=== PATIENT | male | born 1955 | race African-American/Black ===

== ENCOUNTER 2017-02-23 18:53 | Inpatient (IN) | payer OTHER ==
--- NOTE | 2017-02-23 20:03 | HP ---
Admission ROS [facility] Allergies/Adverse Reactions: Allergies Allergy/AdvReac Type Severity Reaction Status Date / Time No Known Allergies Allergy Verified 02/23/17 19:43 - Ebola screening Have you traveled outside of the country in the last 21 days: No Have you had contact with anyone from an Ebola affected area: No Do you have a fever: No Patient History - Patient Medical History Hx Anemia: No Hx Asthma: No Hx Chronic Obstructive Pulmonary Disease (COPD): No Hx Cancer: No Hx Cardiac Disorders: No Hx Congestive Heart Failure: No Hx Hypertension: No Hx Hypercholesterolemia: Yes (BUT NOT CURRENTLY ON MEDS) Hx Pacemaker: No HX Cerebrovascular Accident: No Hx Seizures: No Hx Dementia: No Hx Diabetes: Yes Hx Gastrointestinal Disorders: No Hx Liver Disease: No Hx Genitourinary Disorders: No Hx Sexually Transmitted Disorders: No Hx Renal Disease (ESRD): No Hx Thyroid Disease: No Hx Human Immunodeficiency Virus (HIV): No (NEGATIVE) Hx Hepatitis C: No Hx Depression: No Hx Suicide Attempt: No Hx Bipolar Disorder: No Hx Schizophrenia: No - Patient Surgical History Past Surgical History: Yes Hx Neurologic Surgery: No Hx Cataract Extraction: No Hx Cardiac Surgery: No Hx Lung Surgery: No Hx Breast Surgery: No Hx Breast Biopsy: No Hx Abdominal Surgery: No Hx Appendectomy: No Hx Cholecystectomy: No Hx Genitourinary Surgery: No Hx Section: No Hx Orthopedic Surgery: No Other Surgical History: best salyx, left eye Anesthesia Reaction: No - Smoking Cessation Smoking history: Smoker current status UNK Have you smoked in the past 12 months: No Cigars Per Day: 0 Hx Chewing Tobacco Use: No Initiated information on smoking cessation: No Family Disease History - Family Disease History Family Disease History: Diabetes: Mother (), Heart Disease: Mother Screened but not Admitted - Documentation of Visit Screened but not Admitted: Yes Left Prior to Completion of Assessment: No Insurance Authorization Denied: No Patient Does Not Meet Criteria for Admission: No Level of Care Recommended at this Time: ER Evaluation/Care Alternative Treatment/Detention Info Provided: No Additional Information/Explanation: RESPONSE TO EMERGENCY CALL, OBSERVED PATIENT LYING ON FLOOR SUPINE, RESTLESSNESS, TALKING, ALBE TO FOLLOW DIRECTION ASSIST TO CHAIR, CONTINUE TALKING KICKING ARMS AND LEGS, S/O SEVERE HEARACHE, UNABLE TO SEE, BGM 556, HISTORY OF HYPERTENSION DIABETES II AND GLAUCOMA. RECEIVED SECURITY REPORTS THAT THE PATIENT ARRIVED AROUND 2 PM, SLEEPING ON CHAIR IN WAITING ROOM, UPON AWAKEN, WALKED TO SECURITY THEN COLLAPSED, AMBULANCE WAS CALLED, INFORMATION PROVIDED TO ER, MAY RETURN TO [facility] FOR DETOX/ REHAB WHEN MEDICALLY CLEAR [facility] Breath Alcohol Content Breath Alcohol Content: 0 Vital Signs - Vital Signs Vital Signs Refused: No Pulse Rate: 106 Blood Pressure: 223/106 BP Location: Left Arm Blood Pressure Position: Supine Urine Drug Screen - Control Is Test Valid: Yes - Results Drug Screen Negative: No Urine Drug Screen Results: PCP-Phencyclidine
--- NOTE | 2017-02-24 02:04 | HP ---
CIWA Score - CIWA Score Nausea/Vomitin-No Nausea/No Vomiting Muscle Tremors: 2 Anxiety: 4-Mod. Anxious/Guarded Agitation: 3 Paroxysmal Sweats: 1-Minimal Palms Moist Orientation: 0-Oriented Tacttile Disturbances: 2-Mild Itch/Numbness/Burn Auditory Disturbances: 0-None Visual Disturbances: 1-Very Mild Sensitivity Headache: 2-Mild CIWA-Ar Total Score: 15 Admission ROS S - HPI Chief Complaint: WITHDRAWAL SYMPTOMS Allergies/Adverse Reactions: Allergies Allergy/AdvReac Type Severity Reaction Status Date / Time No Known Allergies Allergy Verified 02/23/17 19:43 History of Present Illness: 61 y.o. with an extensive history of alcohol dependence is here for detox. He returns from [facility] after being treated for hyperglycemia and panic disorder. He was last here for detox in 06/2014 and rehab in 05/2015. Exam Limitations: No Limitations - Ebola screening Have you traveled outside of the country in the last 21 days: No Have you had contact with anyone from an Ebola affected area: No Do you have a fever: No - Review of Systems Constitutional: No Symptoms Reported EENT: reports: Blurred Vision, Tearing Respiratory: reports: Cough Cardiac: reports: No Symptoms Reported GI: reports: No Symptoms Reported : reports: No Symptoms Reported Musculoskeletal: reports: No Symptoms Reported Integumentary: reports: No Symptoms Reported Neuro: reports: Headache, Numbness, Tingling Endocrine: reports: Increased Thirst, Increased Urine Hematology: reports: No Symptoms Reported Psychiatric: reports: Mood/Affect Appropiate, Orientated x3 Other Systems: Reviewed and Negative Patient History - Patient Medical History Hx Anemia: No Hx Asthma: No Hx Chronic Obstructive Pulmonary Disease (COPD): No Hx Cancer: No Hx Cardiac Disorders: No Hx Congestive Heart Failure: No Hx Hypertension: Yes Hx Hypercholesterolemia: Yes (BUT NOT CURRENTLY ON MEDS) Hx Pacemaker: No HX Cerebrovascular Accident: No Hx Seizures: No Hx Dementia: No Hx Diabetes: Yes Hx Gastrointestinal Disorders: No Hx Liver Disease: No Hx Genitourinary Disorders: No Hx Sexually Transmitted Disorders: No Hx Renal Disease (ESRD): No Hx Thyroid Disease: No Hx Human Immunodeficiency Virus (HIV): No (NEGATIVE) Hx Hepatitis C: Yes (Treated ) Hx Depression: No Hx Suicide Attempt: No Hx Bipolar Disorder: No Hx Schizophrenia: No - Patient Surgical History Past Surgical History: Yes Hx Neurologic Surgery: No Hx Cataract Extraction: No Hx Cardiac Surgery: No Hx Lung Surgery: No Hx Breast Surgery: No Hx Breast Biopsy: No Hx Abdominal Surgery: No Hx Appendectomy: No Hx Cholecystectomy: No Hx Genitourinary Surgery: No Hx Section: No Hx Orthopedic Surgery: No Other Surgical History: lazer sx, left eye Anesthesia Reaction: No - PPD History Previous Implant?: No PPD to be Administered?: Yes - Reproductive History Patient is a Female of Child Bearing Age (11 -55 yrs old): No - Smoking Cessation Smoking history: Current some day smoker Have you smoked in the past 12 months: Yes Aproximately how many cigarettes per day: 1 Cigars Per Day: 0 Hx Chewing Tobacco Use: No Initiated information on smoking cessation: Yes 'Breaking Loose' booklet given: 02/24/17 - Substance & Tx. History Hx Alcohol Use: Yes Hx Substance Use: Yes Substance Use Type: Alcohol Hx Substance Use Treatment: Yes (Detox-2013, rehab-2014) - Substances Abused Alcohol Route: Oral Frequency: Daily Amount used: 6 pack of beer 16oz Age of first use: 18 Date of Last Use: 02/24/17 PCP Route: Smoking Frequency: 3-6 times per week Amount used: $20 Age of first use: 18 Date of Last Use: 02/22/17 Family Disease History - Family Disease History Family Disease History: Diabetes: Mother (), Heart Disease: Mother Admission Physical Exam S - Vital Signs Vital Signs: Vital Signs - 24 hr 02/23/17 20:03 Pulse Rate 106 H Blood Pressure 223/106 - Physical General Appearance: Yes: Anxious HEENTM: Yes: Other (LEFT EYE BLINDNESS) Respiratory: Yes: Normal Breath Sounds, No Respiratory Distress, No Accessory Muscle Use Neck: Yes: Trachea in good position Breast: Yes: Breast Exam Deferred Cardiology: Yes: Regular Rhythm, Regular Rate, Other (EKG PERFORMED AT [facility]) Abdominal: Yes: Flat, Soft Genitourinary: Yes: Other (NO COMPLAINTS REPORTED) Back: Yes: Normal Inspection Musculoskeletal: Yes: Gait Steady Extremities: Yes: Non-Tender Neurological: Yes: Fully Oriented, Alert, Normal Mood/Affect, Normal Response Integumentary: Yes: Normal Color, Dry, Warm Lymphatic: Yes: Within Normal Limits - Diagnostic (1) Blind left eye Current Visit: Yes Status: Chronic (2) DM Diabetes mellitus type 2 Current Visit: Yes Status: Chronic (3) Essential hypertension Current Visit: Yes Status: Chronic (4) Nicotine dependence Current Visit: Yes Status: Chronic (5) Alcohol dependence with uncomplicated withdrawal Current Visit: Yes Status: Chronic (6) PCP (phencyclidine) abuse Current Visit: Yes Status: Chronic Cleared for Admission S - Detox or Rehab [facility] Level of Care: Medically Managed Detox Regimen/Protocol: Librium S Breath Alcohol Content Breath Alcohol Content: 0 Urine Drug Screen - Test Device Lot Number: [id number] Expiration Date: 08/16/18 - Control Is Test Valid: Yes - Results Drug Screen Negative: No Urine Drug Screen Results: PCP-Phencyclidine
[2017-02-24] MEDS ORDERED: ACETAMINOPHEN 325 MG TABLET (FP) PO PRN (02:22)
[2017-02-24] MEDS ORDERED: MAG HYDROX/AL HYDROX/SIMETH 30 ML UNIT-DOSE CUP PO PRN (02:22)
[2017-02-24] MEDS ORDERED: chlordiazePOXIDE HCL 25 MG CAPSULE PO PRN (02:22)
[2017-02-24] MEDS ORDERED: P-EPHED 60MG/TRIPROLIDI 2.5MG TABLET PO PRN (02:22)
[2017-02-24] MEDS ORDERED: MAGNESIUM CITRATE 300 ML BOTTLE PO PRN (02:22)
[2017-02-24] MEDS ORDERED: MAGNESIUM HYDROX 2400MG/30ML ORAL SUSPENSION 30 ML CUP PO PRN (02:22)
[2017-02-24] MEDS ORDERED: chlordiazePOXIDE HCL 25 MG CAPSULE PO ONE (02:22)
[2017-02-24] MEDS ORDERED: hydrOXYzine PAMOATE 50 MG CAPSULE (FP) PO PRN (02:22)
[2017-02-24] MEDS ORDERED: MENTHOL/PHENOL 1 EACH UD MM PRN (02:22)
[2017-02-24] MEDS ORDERED: guaiFENesin/D-METHORPHAN HB 10 ML UNIT-DOSE CUPS PO PRN (02:22)
[2017-02-24] MEDS ORDERED: LOPERAMIDE HCL 2 MG CAPSULE PO PRN (02:22)
[2017-02-24] MEDS ORDERED: IBUPROFEN 400 MG TABLET (FP) PO PRN (02:22)
[2017-02-24] MEDS ORDERED: diphenhydrAMINE HCL 50 MG CAPSULE PO PRN (02:22)
[2017-02-24] MEDS ORDERED: cloNIDine HCL 0.1 MG TABLET PO PRN (02:29)
[2017-02-24] MEDS ORDERED: cloNIDine HCL 0.1 MG TABLET PO ONE (03:08)
[2017-02-24] MEDS ORDERED: metFORMIN HCL 500 MG TABLET (FP) PO SCH (07:00)
[2017-02-24] MEDS: chlordiazePOXIDE HCL 25 MG CAPSULE PO SCH ×4 (07:36→22:27)
[2017-02-24] MEDS: INSULIN SLIDING SCALE (NOVOLOG) 1 VIAL SQ SCH ×3 (07:38→17:20)
[2017-02-24] MEDS: glipiZIDE 10 MG TABLET (FP) PO SCH ×2 (08:08→18:21)
[2017-02-24] MEDS ORDERED: INSULIN (NOVOLOG) ASPART 100 UNITS/ML 10ML VIAL ONE ×3 (08:11→17:31)
[2017-02-24] MEDS: ASPIRIN COATED 81 MG TABLET.EC PO SCH (10:46)
[2017-02-24] MEDS: LISINOPRIL 10 MG TABLET (FP) PO SCH (10:46)
[2017-02-24] MEDS: PRENATAL VITAMINS W/ FOLIC ACID TABLET (FP) PO SCH (10:46)
[2017-02-24 14:14] LABS: HIV 1 & 2 AB NEGATIVE; HIV 1 AGp24 NEGATIVE
--- NOTE | 2017-02-24 16:22 | PN ---
[facility] CIWA - CIWA Score Nausea/Vomitin-Mild Nausea/No Vomiting Muscle Tremors: 3 Anxiety: 4-Mod. Anxious/Guarded Agitation: 0-Normal Activity Paroxysmal Sweats: 2 Orientation: 0-Oriented Tacttile Disturbances: 2-Mild Itch/Numbness/Burn Auditory Disturbances: 2-Mild Harshness/Frighten Visual Disturbances: 3-Moderate Sensitivity Headache: 0-None Present CIWA-Ar Total Score: 17 S Progress Note (SOAP) Subjective: Sweating, Tremors, Fatigue. Objective: PT. A & O X 3, OBSERVED AMBULATING ON UNIT. NO ACUTE DISTRESS. PT. DENIES CHEST PAIN. 02/24/17 16:17 Vital Signs Temperature 96.5 F L 02/24/17 13:15 Pulse Rate 70 02/24/17 13:15 Respiratory Rate 18 02/24/17 13:15 Blood Pressure 160/83 02/24/17 13:15 O2 Sat by Pulse Oximetry (%) Laboratory Tests 02/23/17 02/24/17 02/24/17 18:58 07:35 08:00 POC Glucometer 556 324 RPR Titer Nonreactive HIV 1&2 Antibody Screen HIV P24 Antigen 02/24/17 08:00 POC Glucometer RPR Titer HIV 1&2 Antibody Screen Negative HIV P24 Antigen Negative LABS NOTED. Assessment: 02/24/17 16:18 WITHDRAWAL SYMPTOMS. Plan: CONTINUE DETOX. D/C MAGNESIUM-CONTAINING MEDS. REPEAT CBC ON 02/26/2017 FOR ADMISSION CBC ABNORMAL LEVELS. ADVISED PATIENT TO FOLLOW-UP WITH PHYSICIAN ALLERGIST IMMUNOLOGIST AFTER DISCHARGE FROM DETOX FOR GENERAL MEDICAL ASSESSMENT AND FOR ABNORMAL ADMISSION RENAL LAB VALUES.
[2017-02-24] MEDS: THIAMINE HCL 100 MG TABLET (FP) PO SCH (22:24)
[2017-02-24] MEDS: LATANOPROST 0.005% OPHTH SOLN 2.5ML BOTTLE OU SCH (23:26)
[2017-02-25] MEDS: chlordiazePOXIDE HCL 25 MG CAPSULE PO SCH ×4 (06:04→22:39)
[2017-02-25] MEDS: glipiZIDE 10 MG TABLET (FP) PO SCH ×2 (06:19→18:55)
[2017-02-25] MEDS: INSULIN SLIDING SCALE (NOVOLOG) 1 VIAL SQ SCH ×3 (06:20→17:21)
[2017-02-25] MEDS: PRENATAL VITAMINS W/ FOLIC ACID TABLET (FP) PO SCH (09:52)
[2017-02-25] MEDS: LISINOPRIL 10 MG TABLET (FP) PO SCH (09:52)
[2017-02-25] MEDS: ASPIRIN COATED 81 MG TABLET.EC PO SCH (09:52)
[2017-02-25] MEDS ORDERED: INSULIN (NOVOLOG) ASPART 100 UNITS/ML 10ML VIAL ONE ×2 (11:54→16:35)
[2017-02-25] MEDS ORDERED: amLODIPine BESYLATE 10 MG TABLET (FP) PO ONE (14:36)
--- NOTE | 2017-02-25 14:37 | PN ---
[facility] CIWA - CIWA Score Nausea/Vomitin Muscle Tremors: 4-Moderate,w/Arms Extend Anxiety: 4-Mod. Anxious/Guarded Agitation: 4-Moderately Restless Paroxysmal Sweats: No Perspiration Orientation: 0-Oriented Tacttile Disturbances: 1-Very Mild Itch/Numbness Auditory Disturbances: 0-None Visual Disturbances: 0-None Headache: 0-None Present CIWA-Ar Total Score: 16 [facility] Progress Note (SOAP) Subjective: Nausea, sweating, tremor, chills, body aches Objective: 02/25/17 14:26 Last Vital Signs Temp Pulse Resp BP Pulse Ox 98.2 F 69 18 197/92 02/25/17 13:10 02/25/17 13:10 02/25/17 13:10 02/25/17 13:10 B/P: 197/92 Laboratory Tests 02/23/17 02/24/17 02/24/17 18:58 07:35 08:00 POC Glucometer 556 324 RPR Titer Nonreactive HIV 1&2 Antibody Screen HIV P24 Antigen 02/24/17 02/24/17 08:00 17:19 POC Glucometer 338 RPR Titer HIV 1&2 Antibody Screen Negative HIV P24 Antigen Negative Labs noted: FS 324 mg/dl; serum creatinine 2.4, BUN 22; UA: 2+ protein, 3+ glucose Assessment: 02/25/17 14:27 Withdrawal symptoms Noted with HTN, uncontrolled Noted with JOANNA, proteinuria and glycosuria secondary to uncontrolled DMT2 Plan: Continue detox, encouraged to drink lots of water Uncontrolled HTN: d/c lisinopril due to JOANNA, start norvasc 10mg PO daily (1st dose today), change clonidine from 0.2mg PO BID PRN to 0.1mg q8hr prn DMT2, uncontrolled: start levemir 10 units sq qhs, continue insulin lispro sliding scale with coverage, continue glipizide, send BMP in AM Proteinuria and glycosuria secondary to uncontrolled DMT2: encouraged to drink more water, water pitcher ordered, repeat UA JOANNA: d/c lisinopril, avoid nephrotoxic drugs, encouraged to drink lots of water , repeat BMP in AM
[2017-02-25] MEDS: THIAMINE HCL 100 MG TABLET (FP) PO SCH (22:37)
[2017-02-25] MEDS: LATANOPROST 0.005% OPHTH SOLN 2.5ML BOTTLE OU SCH (22:37)
[2017-02-25] MEDS: INSULIN DETEMIR 100 UNITS/ML MDV SQ SCH (23:00)
[2017-02-26] MEDS: chlordiazePOXIDE 5 MG CAPSULE PO SCH ×5 (05:38→22:52)
[2017-02-26] MEDS ORDERED: INSULIN (NOVOLOG) ASPART 100 UNITS/ML 10ML VIAL ONE ×2 (06:07→11:48)
[2017-02-26] MEDS: cloNIDine HCL 0.1 MG TABLET PO PRN ×2 (06:54→21:13)
[2017-02-26] MEDS: glipiZIDE 10 MG TABLET (FP) PO SCH ×2 (06:56→17:22)
[2017-02-26] MEDS: INSULIN SLIDING SCALE (NOVOLOG) 1 VIAL SQ SCH ×3 (06:56→16:43)
[2017-02-26] MEDS ORDERED: amLODIPine BESYLATE 10 MG TABLET (FP) PO SCH (10:00)
[2017-02-26 10:14] LABS: CALCIUM 8.9 mg/dL (8.5-10.1)
[2017-02-26 10:16] LABS: COCKROFT - GAULT 44.9
[2017-02-26] MEDS: ASPIRIN COATED 81 MG TABLET.EC PO SCH (10:36)
[2017-02-26] MEDS: PRENATAL VITAMINS W/ FOLIC ACID TABLET (FP) PO SCH (10:36)
--- NOTE | 2017-02-26 13:27 | PN ---
[facility] Progress Note (SOAP) Subjective: Sweating,interrupted sleep,restless Objective: 02/26/17 13:24 Vital Signs - 8 hr 02/26/17 02/26/17 06:17 09:25 Temperature 99.1 F 96.6 F L Pulse Rate 72 66 Respiratory 18 20 Rate Blood Pressure 181/99 176/93 Laboratory Results - last 24 hr 02/24/17 02/25/17 02/25/17 11:24 06:02 11:32 Sodium Potassium Chloride Carbon Dioxide Anion Gap BUN Creatinine POC Glucometer 406 411 303 Random Glucose Calcium Ammonia 02/25/17 02/25/17 02/26/17 16:22 22:54 05:37 Sodium Potassium Chloride Carbon Dioxide Anion Gap BUN Creatinine POC Glucometer 264 333 256 Random Glucose Calcium Ammonia 02/26/17 02/26/17 02/26/17 07:00 07:00 11:44 Sodium 139 Potassium 3.7 Chloride 103 Carbon Dioxide 29 Anion Gap 7 L BUN 24 H Creatinine 2.0 H POC Glucometer 541 Random Glucose 226 H D Calcium 8.9 Ammonia 40.46 H Laboratory Tests 02/23/17 02/24/17 02/24/17 18:58 07:35 08:00 Sodium Potassium Chloride Carbon Dioxide Anion Gap BUN Creatinine POC Glucometer 556 324 Random Glucose Calcium Ammonia RPR Titer Nonreactive HIV 1&2 Antibody Screen HIV P24 Antigen 02/24/17 02/24/17 02/24/17 08:00 11:24 17:19 Sodium Potassium Chloride Carbon Dioxide Anion Gap BUN Creatinine POC Glucometer 406 338 Random Glucose Calcium Ammonia RPR Titer HIV 1&2 Antibody Screen Negative HIV P24 Antigen Negative 02/25/17 02/25/17 02/25/17 06:02 11:32 16:22 Sodium Potassium Chloride Carbon Dioxide Anion Gap BUN Creatinine POC Glucometer 411 303 264 Random Glucose Calcium Ammonia RPR Titer HIV 1&2 Antibody Screen HIV P24 Antigen 02/25/17 02/26/17 02/26/17 22:54 05:37 07:00 Sodium 139 Potassium 3.7 Chloride 103 Carbon Dioxide 29 Anion Gap 7 L BUN 24 H Creatinine 2.0 H POC Glucometer 333 256 Random Glucose 226 H D Calcium 8.9 Ammonia RPR Titer HIV 1&2 Antibody Screen HIV P24 Antigen 02/26/17 02/26/17 07:00 11:44 Sodium Potassium Chloride Carbon Dioxide Anion Gap BUN Creatinine POC Glucometer 541 Random Glucose Calcium Ammonia 40.46 H RPR Titer HIV 1&2 Antibody Screen HIV P24 Antigen labs noted Assessment: 02/26/17 13:26 Withdrawal sx. Plan: Continue detox
[2017-02-26] MEDS: INSULIN DETEMIR 100 UNITS/ML MDV SQ SCH (21:05)
[2017-02-26] MEDS: THIAMINE HCL 100 MG TABLET (FP) PO SCH (21:06)
[2017-02-26] MEDS: LATANOPROST 0.005% OPHTH SOLN 2.5ML BOTTLE OU SCH (21:06)
[2017-02-27] MEDS ORDERED: chlordiazePOXIDE HCL 10 MG CAPSULE PO SCH (05:00)
[2017-02-27] MEDS ORDERED: INSULIN (NOVOLOG) ASPART 100 UNITS/ML 10ML VIAL ONE (06:13)
[2017-02-27] MEDS: cloNIDine HCL 0.1 MG TABLET PO PRN (06:14)
[2017-02-27] MEDS: glipiZIDE 10 MG TABLET (FP) PO SCH (06:39)
[2017-02-27] MEDS: INSULIN SLIDING SCALE (NOVOLOG) 1 VIAL SQ SCH (06:40)
[2017-02-27 09:24] VITALS: BP 160/87; PULSE 64; TEMP 96.5
[2017-02-27 09:56] LABS: URINE APPEARANCE CLEAR; URINE BILIRUBIN NEGATIVE (NEGATIVE); URINE BLOOD NEGATIVE (NEGATIVE); URINE COLOR STRAW; URINE GLUCOSE (UA) 3+ (NEGATIVE); URINE KETONE NEGATIVE (NEGATIVE); URINE LEUK ESTERASE NEGATIVE (NEGATIVE); URINE NITRITE NEGATIVE (NEGATIVE); URINE UROBILINOGEN NEGATIVE E.U./dl (0.2-1.0)
[2017-02-27 10:01] LABS: URINE PROTEIN 2+ (NEGATIVE)
[2017-02-27 10:16] LABS: URINE RBC 1 /hpf (0-3); URINE WBC <1 /hpf (3-5)
--- NOTE | 2017-02-27 10:35 | DS ---
[facility] Detox Discharge Summary Admission Date: 02/24/17 Discharge Date: 02/27/17 - History Present History: Alcohol Dependence, Cocaine Dependence Pertinent Past History: Type II DM HTN - Physical Exam Results Vital Signs: Vital Signs Temperature 96.5 F L 02/27/17 09:23 Pulse Rate 64 02/27/17 09:23 Respiratory Rate 18 02/27/17 09:23 Blood Pressure 160/87 02/27/17 09:23 O2 Sat by Pulse Oximetry (%) Pertinent Admission Physical Exam Findings: Withdrawal sx. Laboratory Last Values Sodium 139 mmol/L (136-145) 02/26/17 07:00 Potassium 3.7 mmol/L (3.5-5.1) 02/26/17 07:00 Chloride 103 mmol/L (98-107) 02/26/17 07:00 Carbon Dioxide 29 mmol/L (21-32) 02/26/17 07:00 Anion Gap 7 (8-16) L 02/26/17 07:00 BUN 24 mg/dL (7-18) H 02/26/17 07:00 Creatinine 2.0 mg/dL (0.7-1.3) H 02/26/17 07:00 POC Glucometer 311 UNITS (()) 02/27/17 06:10 Random Glucose 226 mg/dL (74-106) H D 02/26/17 07:00 Calcium 8.9 mg/dL (8.5-10.1) 02/26/17 07:00 Ammonia 40.46 umol/L (11-32) H 02/26/17 07:00 Urine Color Straw 02/27/17 08:00 Urine Appearance Clear 02/27/17 08:00 Urine pH 7.0 (5.0-8.0) 02/27/17 08:00 Urine Protein 2+ (NEGATIVE) H 02/27/17 08:00 Urine Glucose (UA) 3+ (NEGATIVE) H 02/27/17 08:00 Urine Ketones Negative (NEGATIVE) 02/27/17 08:00 Urine Blood Negative (NEGATIVE) 02/27/17 08:00 Urine Nitrite Negative (NEGATIVE) 02/27/17 08:00 Urine Bilirubin Negative (NEGATIVE) 02/27/17 08:00 Urine Urobilinogen Negative E.U./dl (0.2-1.0) 02/27/17 08:00 Ur Leukocyte Esterase Negative (NEGATIVE) 02/27/17 08:00 Urine RBC 1 /hpf (0-3) 02/27/17 08:00 Urine WBC <1 /hpf (3-5) 02/27/17 08:00 RPR Titer Nonreactive (NONREACTIVE) 02/24/17 08:00 HIV 1&2 Antibody Screen Negative 02/24/17 08:00 HIV P24 Antigen Negative 02/24/17 08:00 labs noted - Treatment Hospital Course: Detox Protocol Followed, Detoxed Safely, Responded well, Discharged Condition Good, Rehab Referral Accepted Patient has Accepted a Rehab Referral to: [facility] [place] - Medication Discharge Medications: Ambulatory Orders Enalapril Maleate [Vasotec -] 5 mg PO DAILY 07/10/12 Glipizide [Glucotrol] 10 mg PO BID 07/10/12 Metformin HCl [Glucophage] 1,000 mg PO BID 05/26/15 - Diagnosis (1) Alcohol dependence with uncomplicated withdrawal Current Visit: Yes Status: Chronic (2) DM Diabetes mellitus type 2 Current Visit: Yes Status: Chronic (3) Essential hypertension Current Visit: Yes Status: Chronic (4) Nicotine dependence Current Visit: Yes Status: Chronic (5) Cocaine dependence Current Visit: Yes Status: Chronic - AMA Did Patient Leave Against Medical Advice: No
== END 2017-02-27 10:54 | disposition home or self-care (01) | DRG 897 ==
LOC: YASAS 18:53 → Y3N 02-24 02:10
PROVIDERS: ADMIT Internal Medicine; ATTEND Internal Medicine
PROC: HZ2ZZZZ Detoxification Services for Substance Abuse Treatment (ICD-10-PCS; principal; 2017-02-24)
DX: F10.230 Alcohol dependence with withdrawal, uncomplicated (principal); F14.20 Cocaine dependence, uncomplicated; N17.9 Acute kidney failure, unspecified; F17.210 Nicotine dependence, cigarettes, uncomplicated; F16.10 Hallucinogen abuse, uncomplicated; E11.65 Type 2 diabetes mellitus with hyperglycemia; I10 Essential (primary) hypertension; R80.9 Proteinuria, unspecified; R81 Glycosuria; Z79.4 Long term (current) use of insulin; Z79.84 Long term (current) use of oral hypoglycemic drugs
CPT/HCPCS: 36415; 71020-TC; 80048; 80053; 81003; 81015; 82140; 85025; 86593; 87389; 93005; 93010; 99283-25

== ENCOUNTER 2017-02-23 19:28 | Emergency (ER) | payer OTHER ==
[2017-02-23 19:45] VITALS: TEMP 98.9; BMI 28.1
--- NOTE | 2017-02-23 20:03 | PDOC ---
History of Present Illness - General Chief Complaint: Blood Pressure Problem Stated Complaint: BLOOD SUGAR PROBLEM Time Seen by Provider: 02/23/17 19:43 History Source: Patient Exam Limitations: No Limitations - History of Present Illness Initial Comments: 02/23/17 20:03 PMD: Dr. 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 Patient states while at [facility] detox [facility](for pcp/"smoked" x1d ago), he was hyperventilating. He denies dizziness, lightheadedness, headache, visual disturbance to his right eye(pt is legally blind to the left eye), neck pains, back pains, chest pain, shortness of breath, abdominal pains, ext numbness or tingling sensation. Patient states he feels fine since arriving to the emergency department. Timing/Duration: 1/2 hour Associated Symptoms: reports: denies symptoms Past History - Past Medical History Allergies/Adverse Reactions: Allergies Allergy/AdvReac Type Severity Reaction Status Date / Time No Known Allergies Allergy Verified 02/23/17 19:43 Home Medications: Ambulatory Orders Enalapril Maleate [Vasotec -] 5 mg PO DAILY 07/10/12 Glipizide [Glucotrol] 10 mg PO BID 07/10/12 Metformin HCl [Glucophage] 1,000 mg PO BID 05/26/15 Anemia: No Asthma: No Cancer: No Cardiac Disorders: No CVA: No COPD: No CHF: No Dementia: No Diabetes: Yes GI Disorders: No Disorders: No HTN: No Hypercholesterolemia: Yes (BUT NOT CURRENTLY ON MEDS) Kidney Stones: No Liver Disease: No Suicide Attempt (Hx): No Seizures: No Thyroid Disease: No - Surgical History Abdominal Surgery: No Appendectomy: No Cardiac Surgery: No Cholecystectomy: No Lung Surgery: No Neurologic Surgery: No Orthopedic Surgery: No - Reproductive History Testicular Surgery: No - Psycho/Social/Smoking Cessation Hx Anxiety: No Suicidal Ideation: No Smoking History: Unknown if ever smoked Have you smoked in the past 12 months: No Number of Cigarettes Smoked Daily: 10 Cigars Per Day: 0 Information on smoking cessation initiated: No 'Breaking Loose' booklet given: 05/26/15 Hx Alcohol Use: No Drug/Substance Use Hx: No Substance Use Type: Alcohol, Cocaine Hx Substance Use Treatment: Yes Review of Systems - Review of Systems Able to Perform ROS?: Yes Comments:: 02/23/17 20:09 CONSTITUTIONAL: Absent: fever, chills, diaphoresis, generalized weakness, malaise, loss of appetite HEENT: Absent: rhinorrhea, nasal congestion, throat pain, throat swelling, difficulty swallowing, mouth swelling, ear pain, eye pain, visual Changes CARDIOVASCULAR: Absent: chest pain, loss of consciousness, palpitations, irregular heart rate, peripheral edema RESPIRATORY: Absent: cough, shortness of breath, dyspnea with exertion, orthopnea, wheezing, stridor, hemoptysis GASTROINTESTINAL: Absent: abdominal pain, abdominal distension, nausea, vomiting, diarrhea, constipation, melena, hematochezia GENITOURINARY: Absent: dysuria, frequency, urgency, hesitancy, hematuria, flank pain, genital pain MUSCULOSKELETAL: Absent: myalgia, arthralgia, joint swelling SKIN: Absent: rash, itching, pallor HEMATOLOGIC/IMMUNOLOGIC: Absent: easy bleeding, easy bruising, lymphadenopathy, frequent infections ENDOCRINE: Absent: unexplained weight gain, unexplained weight loss, heat intolerance, cold intolerance NEUROLOGIC: Absent: headache, focal weakness or paresthesias, dizziness, unsteady gait, seizure, mental status changes, bladder or bowel incontinence PSYCHIATRIC: Absent: anxiety, depression, suicidal or homicidal ideation, hallucinations. Is the patient limited Bolivian proficient: No *Physical Exam - Vital Signs Last Vital Signs Temp Pulse Resp BP Pulse Ox 98.9 F 88 18 194/91 100 02/23/17 19:44 02/23/17 19:44 02/23/17 19:44 02/23/17 19:44 02/23/17 19:44 - Physical Exam Comments: 02/23/17 20:09 GENERAL: Well developed, well nourished. Awake and alert. No acute distress. HEENT: Normocephalic, atraumatic. PERRLA, EOMI. No conjunctival pallor. Sclera are non- icteric. Moist mucous membranes. Oropharynx is clear. NECK: Supple. Full ROM. No JVD. Carotid pulses 2+ and symmetric, without bruits. No thyromegaly. No lymphadenopathy. CARDIOVASCULAR: Regular rate and rhythm. No murmurs, rubs, or gallops. Distal pulses are 2+ and symmetric. PULMONARY: No evidence of respiratory distress. Lungs clear to auscultation bilaterally. No wheezing, rales or rhonchi. ABDOMINAL: Soft. Non-tender. Non-distended. No rebound or guarding. No organomegaly. Normoactive bowel sounds. MUSCULOSKELETAL Normal range of motion at all joints. No bony deformities or tenderness. No CVA tenderness. EXTREMITIES: No cyanosis. No clubbing. No edema. No calf tenderness. SKIN: Warm and dry. Normal capillary refill. No rashes. No jaundice. NEUROLOGICAL: Alert, awake, appropriate. Cranial nerves 2-12 intact. No deficits to light touch and temperature in face, upper extremities and lower extremities. No motor deficits in the in face, upper extremities and lower extremities. Normoreflexic in the upper and lower extremities. Normal speech. Toes are down- going bilaterally. Gait is normal without ataxia. PSYCHIATRIC: Cooperative. Good eye contact. Appropriate mood and affect. ED Treatment Course - LABORATORY CBC & Chemistry Diagram: 02/23/17 20:24 02/23/17 20:24 *DC/Admit/Observation/Transfer Diagnosis at time of Disposition: Hyperglycemia, Panic anxiety syndrome - Discharge Dispostion Disposition: HOME Condition at time of disposition: Stable Admit: No - Referrals Referrals: Mary Beth Juarez [Staff Physician] - - Patient Instructions Printed Discharge Instructions: DI for Panic Disorder, DI for Hyperglycemia -- Adult Additional Instructions: Return to the ER for severe/persistent/worsening symptoms
[2017-02-23] MEDS ORDERED: SODIUM CHLORIDE 1,000 ML IV STA (20:14)
[2017-02-23 20:35] LABS: BASOPHIL 0.6 % (0-2.0); EOSINOPHIL 2.1 % (0-4.5); MCH 23.3 pg (25.7-33.7); MCHC 31.7 g/dl (32.0-35.9); MEAN CELL VOLUME 73.5 fl (80-96); MEAN PLT VOLUME 8.2 fl (7.5-11.1); NEUTROPHILS 51.6 % (42.8-82.8); PLATELET COUNT 197 K/MM3 (134-434); RDW 15.2 % (11.9-15.9)
[2017-02-23 20:47] LABS: URINE APPEARANCE CLEAR; URINE BILIRUBIN NEGATIVE (NEGATIVE); URINE COLOR COLORLESS; URINE GLUCOSE (UA) 3+ (NEGATIVE); URINE KETONE NEGATIVE (NEGATIVE); URINE LEUK ESTERASE NEGATIVE (NEGATIVE); URINE NITRITE NEGATIVE (NEGATIVE); URINE UROBILINOGEN NEGATIVE E.U./dl (0.2-1.0)
[2017-02-23 21:02] LABS: URINE BLOOD 1+ (NEGATIVE); URINE PROTEIN 2+ (NEGATIVE)
[2017-02-23 21:08] LABS: URINE RBC 3 /hpf (0-3); URINE WBC <1 /hpf (3-5)
[2017-02-23 21:18] LABS: ALBUMIN 2.4 g/dl (3.4-5.0); BILIRUBIN,TOTAL 0.2 mg/dL (0.2-1.0); CALCIUM 8.1 mg/dL (8.5-10.1); COCKROFT - GAULT 38.27; CREATININE 2.4 mg/dL (0.7-1.3); TOT PROT 5.7 g/dl (6.4-8.2)
[2017-02-23] MEDS ORDERED: INSULIN REGULAR HUMAN 100 UNITS/ML *VIAL IVPUSH ONE (21:20)
[2017-02-24 01:44] VITALS: BP 153/85; PULSE 72
--- NOTE | 2017-02-24 15:32 | EKG ---
Test Reason : Blood Pressure : / mmHG Vent. Rate : 082 BPM Atrial Rate : 082 BPM P-R Int : 168 ms QRS Dur : 106 ms QT Int : 414 ms P-R-T Axes : 053 -55 127 degrees QTc Int : 483 ms NORMAL SINUS RHYTHM POSSIBLE LEFT ATRIAL ENLARGEMENT LEFT AXIS DEVIATION INCOMPLETE RIGHT BUNDLE BRANCH BLOCK T WAVE ABNORMALITY, CONSIDER LATERAL ISCHEMIA PROLONGED QT ABNORMAL ECG NO PREVIOUS ECGS AVAILABLE CLINICAL CORRELATION IS RECOMMENDED Confirmed by ANAND MOORE, HANK ([id number]) on 02/24/2017 3:31:31 PM Referred By: Confirmed By:HANK MICHEL MD
== END 2017-02-24 01:43 | disposition home or self-care (01) ==
LOC: JER 19:28
PROC: 3E033VG Introduction of Insulin into Peripheral Vein, Percutaneous Approach (ICD-10-PCS; principal; 2017-02-23)
PROC: 3E0337Z Introduction of Electrolytic and Water Balance Substance into Peripheral Vein, Percutaneous Approach (ICD-10-PCS; 2017-02-23)
DX: E11.65 Type 2 diabetes mellitus with hyperglycemia (principal); F41.9 Anxiety disorder, unspecified; Z79.84 Long term (current) use of oral hypoglycemic drugs; I10 Essential (primary) hypertension; H54.42 Blindness, left eye, normal vision right eye; E78.00 Pure hypercholesterolemia, unspecified
CPT/HCPCS: 36415; 80053; 81003; 81015; 85025; 93005; 93010; 99283-25

== ENCOUNTER 2017-11-01 11:45 | Inpatient (IN) | payer OTHER ==
--- NOTE | 2017-11-01 12:35 | PDOC ---
History of Present Illness - General Chief Complaint: Blood Pressure Problem Stated Complaint: Blood Pressure Problem Time Seen by Provider: 11/01/17 12:09 History Source: Patient Exam Limitations: No Limitations - History of Present Illness Initial Comments: 11/01/17 13:10 The patient is a 62M with a PMH of DM and HTN who presents to the ER with complaints of high blood pressure. The patient states that he hasn't taken his BP medications in 2 weeks. He states he was going to rehab at [facility] for PCP and they recorded a high BP and sent him to the ER to get evaluated. He denies any symptoms. Past History - Past Medical History Allergies/Adverse Reactions: Allergies Allergy/AdvReac Type Severity Reaction Status Date / Time No Known Allergies Allergy Verified 11/01/17 12:03 Home Medications: Ambulatory Orders Atorvastatin Ca [Lipitor] 40 mg PO HS 11/01/17 Bimatoprost [Lumigan] 1 drop OD DAILY 11/01/17 Carvedilol [Coreg -] 25 mg PO BID 11/01/17 Clopidogrel Bisulfate [Plavix -] 75 mg PO HS 11/01/17 Cyclobenzaprine HCl [Flexeril -] 10 mg PO TID 11/01/17 Dorzolamide HCl/Timolol Maleat [Cosopt Eye Drops] 10 ml OD BID 11/01/17 Furosemide [Lasix -] 40 mg PO BID 11/01/17 Hydralazine HCl 50 mg PO TID 11/01/17 Insulin (Novolog) [Novolog Flexpen] 7 units SQ AC 11/01/17 Isosorbide Mononitrate [Imdur -] 30 mg PO DAILY 11/01/17 Latanoprost 0.005% Eye Drops [Xalatan 0.005% Eye Drops -] 1 drop OD HS 11/01/17 Lisinopril [Prinivil -] 40 mg PO DAILY 11/01/17 Anemia: No Asthma: No Cancer: No Cardiac Disorders: No CVA: No COPD: No CHF: No Dementia: No Diabetes: Yes GI Disorders: No Disorders: No HTN: Yes Hypercholesterolemia: Yes (BUT NOT CURRENTLY ON MEDS) Kidney Stones: No Liver Disease: No Seizures: No Thyroid Disease: No - Surgical History Abdominal Surgery: No Appendectomy: No Cardiac Surgery: No Cholecystectomy: No Lung Surgery: No Neurologic Surgery: No Orthopedic Surgery: No - Reproductive History Testicular Surgery: No - Suicide/Smoking/Psychosocial Hx Smoking History: Current some day smoker Have you smoked in the past 12 months: Yes Number of Cigarettes Smoked Daily: 5 Cigars Per Day: 0 Information on smoking cessation initiated: No 'Breaking Loose' booklet given: 02/24/17 Hx Alcohol Use: No Drug/Substance Use Hx: Yes (pcp,oxy) Substance Use Type: None Hx Substance Use Treatment: Yes (Detox-2013, rehab-2014) Review of Systems - Review of Systems Able to Perform ROS?: Yes Comments:: 11/01/17 14:49 GENERAL/CONSTITUTIONAL: No fever or chills. No weakness. HEAD, EYES, EARS, NOSE AND THROAT: No change in vision. No ear pain or discharge. No sore throat. CARDIOVASCULAR: Positive for elevated BP. No chest pain, palpitations, or lightheadedness. RESPIRATORY: No cough, wheezing, shortness of breath, or hemoptysis. GASTROINTESTINAL: No nausea, vomiting, diarrhea, constipation, or abdominal pain. GENITOURINARY: No dysuria, frequency, hematuria, or change in urination. MUSCULOSKELETAL: No joint or muscle swelling or pain. No neck or back pain. SKIN: No rash or lesions. NEUROLOGIC: No headache, numbness, tingling, weakness, loss of consciousness, or change in strength/sensation. ENDOCRINE: No increased thirst. No abnormal weight change. HEMATOLOGIC/LYMPHATIC: No anemia, easy bleeding, or history of blood clots. ALLERGIC/IMMUNOLOGIC: No hives or skin allergy. Is the patient limited Wallisian proficient: No *Physical Exam - Vital Signs Last Vital Signs Temp Pulse Resp BP Pulse Ox 97.9 F 80 12 196/96 100 11/01/17 11:54 11/01/17 11:54 11/01/17 11:54 11/01/17 11:54 11/01/17 11:54 - Physical Exam Comments: 11/01/17 14:49 GENERAL: Well developed, well nourished. Awake and alert. No acute distress. HEENT: Normocephalic, atraumatic. Hearing grossly normal. Moist mucous membranes. PERRLA, EOMI. No conjunctival pallor. Sclera are non-icteric. NECK: Supple. Full ROM. No JVD. CARDIOVASCULAR: Regular rate and rhythm. No murmurs, rubs, or gallops. PULMONARY: No evidence of respiratory distress. Lungs clear to auscultation bilaterally. No wheezing, rales or rhonchi. ABDOMINAL: Soft. Non-tender. Non-distended. No rebound or guarding. GENITOURINARY: No CVA tenderness bilaterally. MUSCULOSKELETAL: Normal range of motion at all joints. No bony deformities or tenderness. L arm in cast. EXTREMITIES: No cyanosis. No clubbing. No edema. No calf tenderness. SKIN: Warm and dry. Normal capillary refill. No rashes. No jaundice. NEUROLOGICAL: Alert, awake, appropriate. Cranial nerves 2-12 intact. Normal speech. Gait is normal without ataxia. PSYCHIATRIC: Cooperative. Good eye contact. Appropriate mood and affect. Heart Score/ECG Review #1 ECG reviewed & interpreted by me at: 13:50 General ECG Interpretation: Sinus Rhythm, Normal Rate, Normal Intervals, No acute ischemic changes 11/01/17 14:50 NSR Rate 69 MI 164 QRS 104 QTc 458 L anterior fascicular block noted ED Treatment Course - LABORATORY CBC & Chemistry Diagram: 11/01/17 13:20 11/01/17 13:20 Medical Decision Making - Medical Decision Making 11/01/17 12:29 The patient is a 62M with a PMH of DM and HTN who presents to the ER with elevated BP sent from his rehab facility (for PCP). I have spoken to the pharmacy and received this list of medications: - Novolog 7 units TID before meals - Hydralazine 50 mg TID - Lisinopril 40mg once/day - Plavix 75mg once/day - Lasix 40mg BID - Imdur 30mg once/day - Lipitor 40mg once/day - Coreg 25mg BID - Flexeril 5 mg TID - Xeletin eye drops one drop BID - Lumigan 0.01% - Cosopt 1 drop R eye BID Dr. Lola Nix at [facility] is the prescriber. Will give home BP meds and reevaluate. 11/01/17 14:51 Pt noted to have JOANNA with BUN 30 and Cr 3.0 up from 2.0 last February. Will admit for JOANNA possibly 2/2 to HTN and/or DM. 11/01/17 15:18 Attending endorsed pt to [facility] under Dr. Belcher. *DC/Admit/Observation/Transfer Diagnosis at time of Disposition: Essential hypertension - Discharge Dispostion Condition at time of disposition: Stable Admit: Yes - Referrals - Patient Instructions - Post Discharge Activity
[2017-11-01] MEDS ORDERED: hydrALAZINE HCL 50 MG TABLET (FP) PO ONE (12:54)
[2017-11-01] MEDS ORDERED: ISOSORBIDE MONONITRATE 30 MG TAB.SR.24H (FP) PO ONE (12:54)
[2017-11-01] MEDS ORDERED: CARVEDILOL 25 MG TABLET (FP) PO ONE (12:54)
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
[2017-11-01] MEDS ORDERED: CARVEDILOL 12.5 MG TABLET (FP) ONE (13:29)
[2017-11-01] MEDS ORDERED: hydrALAZINE HCL 25 MG TABLET (FP) ONE (13:29)
[2017-11-01] MEDS ORDERED: ISOSORBIDE MONONITRATE 60 MG TAB.SR.24H (FP) PO ONE (13:30)
[2017-11-01 13:48] LABS: BASO % 0.6 % (0-2.0); EOS % 1.7 % (0-4.5); HEMOGLOBIN 10.5 GM/dL (11.7-16.9); LYMPH % 30.9 % (8-40); MEAN CELL VOLUME 74.2 fl (80-96); MEAN PLT VOLUME 8.7 fl (7.5-11.1); MONO % 5.6 % (3.8-10.2); NEUT % 61.2 % (42.8-82.8); PLATELET COUNT 226 K/MM3 (134-434); RBC 4.58 M/mm3 (4.00-5.60); RDW 14.6 % (11.9-15.9)
[2017-11-01 14:13] LABS: ALBUMIN 2.8 g/dl (3.4-5.0); ANION GAP 10 (8-16); BILIRUBIN,TOTAL 0.5 mg/dL (0.2-1.0); BLOOD UREA NITROGEN 31 mg/dL (7-18); CALCIUM 8.6 mg/dL (8.5-10.1); CHLORIDE 98 mmol/L (98-107); CO2 27 mmol/L (21-32); MAGNESIUM 2.3 mg/dL (1.8-2.4); POTASSIUM 4.6 mmol/L (3.5-5.1); SGOT/AST 36 U/L (15-37); SGPT/ALT 33 U/L (12-78); SODIUM 135 mmol/L (136-145); TOT PROT 6.7 g/dl (6.4-8.2)
[2017-11-01 14:14] LABS: ALK PHOS 89 U/L (45-117)
[2017-11-01 14:15] LABS: GLUCOSE,RANDOM 485 mg/dL (74-106)
[2017-11-01] MEDS ORDERED: CYCLOBENZAPRINE HCL 10 MG TABLET (FP) PO PRN (15:26)
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
[2017-11-01] MEDS: INSULIN SLIDING SCALE (NOVOLOG) 1 VIAL SQ SCH ×2 (18:02→21:09)
[2017-11-01] MEDS ORDERED: INSULIN (NOVOLOG) ASPART 100 UNITS/ML 10ML VIAL ONE ×2 (18:05→20:14)
--- NOTE | 2017-11-01 18:30 | CON.CARD ---
Cardiology Consult (text) - Consultation Consultation Note: Current Medications Atorvastatin Calcium (Lipitor -) 40 mg PO HS [facility] Carvedilol (Coreg -) 25 mg PO BID [facility] Clopidogrel Bisulfate (Plavix -) 75 mg PO HS [facility] Cyclobenzaprine HCl (Flexeril -) 10 mg PO Q8H PRN PRN Reason: MUSCLE SPASMS Dorzolamide HCl (Trusopt 2%) 1 drop OD BID [facility] Heparin Sodium (Porcine) (Heparin -) 5,000 unit SQ TID [facility] Hydralazine HCl (Apresoline -) 50 mg PO TID [facility] Insulin Aspart (Novolog Vial Sliding Scale -) 1 vial SQ ACHS [facility] PRN Reason: Protocol Last Admin: 11/01/17 18:02 Dose: 10 unit Isosorbide Mononitrate (Imdur -) 30 mg PO DAILY [facility] Timolol Maleate (Timoptic 0.5%) 1 drop OD BID [facility] Vital Signs - 24 hr 11/01/17 11/01/17 11/01/17 11:54 15:32 18:21 Temperature 97.9 F 98.2 F Pulse Rate 80 Pulse Rate [ 65 66 Apical] Respiratory 12 16 16 Rate Blood Pressure 196/96 Blood Pressure 126/65 132/71 [Right] O2 Sat by Pulse 100 97 100 Oximetry (%) Intake & Output 10/30/17 10/31/17 11/01/17 11/02/17 07:59 07:59 07:59 07:59 Weight 174 lb CBC, BMP 11/01/17 13:20 11/01/17 13:20
[2017-11-01 19:57] LABS: ACETONE SERUM NEGATIVE (NEGATIVE)
[2017-11-01] MEDS: CLOPIDOGREL BISULFATE 75 MG TABLET (FP) PO SCH (21:09)
[2017-11-01] MEDS: CARVEDILOL 25 MG TABLET (FP) PO SCH (21:09)
[2017-11-01] MEDS: HEPARIN NA (PORCINE) 5,000 UNITS/ML 1ML VIAL SQ SCH (21:09)
[2017-11-01] MEDS: ATORVASTATIN CA 40 MG TABLET (FP) PO SCH (21:09)
[2017-11-01] MEDS: hydrALAZINE HCL 50 MG TABLET (FP) PO SCH (21:09)
[2017-11-01] MEDS ORDERED: PATIENT'S OWN MEDICATION (NON-FORMULARY) (Dorzolamide Hcl/Timolol Maleat [Cosopt Eye Drops OD SCH (22:00)
[2017-11-01] MEDS: TIMOLOL 0.5% OPHTHALMIC SOL 5 ML BOTTLE OD SCH (23:03)
[2017-11-01] MEDS: DORZOLAMIDE 2% HCL OPHTHALMIC SOLUTION 10 ML BOTTLE OD SCH (23:03)
[2017-11-01 23:24] VITALS: BMI 26.4
[2017-11-02] MEDS ORDERED: PT OWN MED DRAWER 7, Y5N ONE ×3 (06:08→20:42)
[2017-11-02] MEDS: hydrALAZINE HCL 50 MG TABLET (FP) PO SCH ×3 (06:54→21:07)
[2017-11-02] MEDS: INSULIN SLIDING SCALE (NOVOLOG) 1 VIAL SQ SCH ×4 (06:54→21:08)
[2017-11-02] MEDS: HEPARIN NA (PORCINE) 5,000 UNITS/ML 1ML VIAL SQ SCH ×3 (06:55→21:08)
[2017-11-02] MEDS ORDERED: INSULIN (NOVOLOG) ASPART 100 UNITS/ML 10ML VIAL ONE ×2 (07:09→11:42)
[2017-11-02 08:02] LABS: CHLORIDE 102 mmol/L (98-107); POTASSIUM 4.6 mmol/L (3.5-5.1); SODIUM 138 mmol/L (136-145)
[2017-11-02 08:15] LABS: ANION GAP 10 (8-16); BLOOD UREA NITROGEN 31 mg/dL (7-18); CALCIUM 8.1 mg/dL (8.5-10.1); CO2 26 mmol/L (21-32); CREATININE 3.1 mg/dL (0.7-1.3); GLUCOSE,RANDOM 288 mg/dL (74-106)
[2017-11-02] MEDS: CARVEDILOL 25 MG TABLET (FP) PO SCH ×2 (09:10→21:07)
[2017-11-02] MEDS: ISOSORBIDE MONONITRATE 30 MG TAB.SR.24H (FP) PO SCH (09:10)
[2017-11-02] MEDS: DORZOLAMIDE 2% HCL OPHTHALMIC SOLUTION 10 ML BOTTLE OD SCH ×2 (09:10→21:07)
[2017-11-02] MEDS: TIMOLOL 0.5% OPHTHALMIC SOL 5 ML BOTTLE OD SCH ×2 (09:11→21:07)
--- NOTE | 2017-11-02 11:10 | PN ---
Progress Note (short form) - Note Progress Note: Subjective: The patient was seen and examined at the bedside, he has complaints of left arm pain with movement but states he does not want any pain medication. Started on Librium detox per Dr. Sawant today Cr remains elevated 3.1. F/u FeNa. Renal ultrasound noted. F/u nephrology consult Current Medications Generic Name Dose Route Start Last Admin Trade Name Freq PRN Reason Stop Dose Admin Atorvastatin Calcium 40 mg 11/01/17 22:00 11/01/17 21:09 Lipitor - PO 40 mg HS [facility] Administration Carvedilol 25 mg 11/01/17 22:00 11/02/17 09:10 Coreg - PO 25 mg BID [facility] Administration Chlordiazepoxide HCl 50 mg 11/02/17 17:00 Librium - PO 11/03/17 11:01 [id number] [facility] Chlordiazepoxide HCl 25 mg 11/03/17 17:00 Librium - PO 11/04/17 11:01 [id number] [facility] Chlordiazepoxide HCl 15 mg 11/04/17 17:00 Librium - PO 11/05/17 11:01 [id number] [facility] Chlordiazepoxide HCl 25 mg 11/02/17 14:07 Librium - PO 11/05/17 14:06 Q4H PRN WITHDRAWAL(CONT SUBST) Clopidogrel Bisulfate 75 mg 11/01/17 22:00 11/01/17 21:09 Plavix - PO 75 mg HS [facility] Administration Cyclobenzaprine HCl 10 mg 11/01/17 15:26 Flexeril - PO Q8H PRN MUSCLE SPASMS Dorzolamide HCl 1 drop 11/01/17 22:00 11/02/17 09:10 Trusopt 2% OD 1 drop BID [facility] Administration Heparin Sodium (Porcine) 5,000 unit 11/01/17 22:00 11/02/17 13:52 Heparin - SQ 5,000 unit TID [facility] Administration Hydralazine HCl 50 mg 11/01/17 22:00 11/02/17 13:52 Apresoline - PO 50 mg TID [facility] Administration Insulin Aspart 1 vial 11/01/17 16:30 11/02/17 12:06 Novolog Vial Sliding Scale - SQ 6 unit ACHS [facility] Administration Protocol Isosorbide Mononitrate 30 mg 11/02/17 10:00 11/02/17 09:10 Imdur - PO 30 mg DAILY [facility] Administration Multivit/Folic Acid/Iron 1 tab 11/03/17 10:00 Vitamins (Sjr) - PO DAILY [facility] Thiamine HCl 100 mg 11/02/17 22:00 Vitamin B1 - PO HS [facility] Timolol Maleate 1 drop 11/01/17 22:00 11/02/17 09:11 Timoptic 0.5% OD 1 drop BID [facility] Administration Objective: Vital Signs Period Temp Pulse Resp BP Sys/House Pulse Ox Last 24 Hr 97.9 F-98.2 F 61-67 16-20 118-154/60-79 97-100 Physical Exam: Patient refused, becoming increasingly more agitated when I told him he was not being discharged today CBCD WBC 6.0 K/mm3 (4.0-10.0) 11/01/17 13:20 RBC 4.58 M/mm3 (4.00-5.60) 11/01/17 13:20 Hgb 10.5 GM/dL (11.7-16.9) L 11/01/17 13:20 Hct 34.0 % (35.4-49) L 11/01/17 13:20 MCV 74.2 fl (80-96) L 11/01/17 13:20 MCHC 31.0 g/dl (32.0-35.9) L 11/01/17 13:20 RDW 14.6 % (11.9-15.9) 11/01/17 13:20 Plt Count 226 K/MM3 (134-434) 11/01/17 13:20 MPV 8.7 fl (7.5-11.1) 11/01/17 13:20 CMP Sodium 138 mmol/L (136-145) 11/02/17 06:12 Potassium 4.6 mmol/L (3.5-5.1) 11/02/17 06:12 Chloride 102 mmol/L (98-107) 11/02/17 06:12 Carbon Dioxide 26 mmol/L (21-32) 11/02/17 06:12 Anion Gap 10 (8-16) 11/02/17 06:12 BUN 31 mg/dL (7-18) H 11/02/17 06:12 Creatinine 3.1 mg/dL (0.7-1.3) H 11/02/17 06:12 Creat Clearance w eGFR 21.45 (>60) 11/01/17 13:20 Random Glucose 288 mg/dL (74-106) H D 11/02/17 06:12 Calcium 8.1 mg/dL (8.5-10.1) L 11/02/17 06:12 Total Bilirubin 0.5 mg/dL (0.2-1.0) D 11/01/17 13:20 AST 36 U/L (15-37) 11/01/17 13:20 ALT 33 U/L (12-78) 11/01/17 13:20 Alkaline Phosphatase 89 U/L (45-117) 11/01/17 13:20 Total Protein 6.7 g/dl (6.4-8.2) 11/01/17 13:20 Albumin 2.8 g/dl (3.4-5.0) L 11/01/17 13:20 Assessment: This is a 62 year old male with PMHx of DM, HTN, polysubstance abuse , CAD (s/p stenting?), hyperlipidemia, CKD, who presented to the ED from [facility] with high blood pressure and hyperglycemia. Plan: 1) Hypertensive emergency with JOANNA - Patient reports non-compliance with medications - Continue Imdur, Hydralazine, Coreg - Continue to monitor - Hold Lasix and Lisinopril 2/ JOANNA - F/u cardiology consult 2) JOANNA on CKD - Cr ~2.2 02/2017 - Patient reports CKD - May be worsening CKD vs. JOANNA on CKD - F/u urine studies - Kidney/bladder ultrasound: No hydronephrosis seen. The right kidney with no discrete abnormality. Evaluation of the left renal size is limited - F/u nephrology consult 3) Hyperglycemia - BGM ACHS - ISS ACHS - F/u endocrine consult 4) Polysubstance abuse - No evidence of acute alcohol withdrawal! - Patient reports pcp dependence - Patient was started on Librium detox per Dr. Sawant - F/u detox consult 5) F/E/N: - Sodium controlled/diabetic diet - Monitor electrolytes 6) Prophylaxis: - OOB ambulating - SCDs bilaterally - Heparin 5,000u sq tid 7) Dispo: - Requires continued inpatient care CODE STATUS: FULL CODE Visit type - Emergency Visit Emergency Visit: Yes ED Registration Date: 11/01/17 Care time: The patient presented to the Emergency Department on the above date and was hospitalized for further evaluation of their emergent condition. - New Patient This patient is new to me today: No - Critical Care Critical Care patient: No
--- NOTE | 2017-11-02 12:21 | CON.CARD ---
Cardiology Consult (text) - Consultation Consultation Note: cc: htn hpi: 62 m hx htn, hld, dm, here with htn. Was entering rehab for pcp abuse and bp high so sent to er. Pt has not taken his meds in 2weeks. No cp, sob, palps, dizzy, loc, pnd, orthopnea, le edema. No hx hrt dz. pmh: per hpi psh: nc social: no tob, +pcp fam: no premature cad, scd ros: per hpi; no nvd, banegas, vision changes, gib, hematuria, dysuria, muscle pain meds: Home Medications Medication Instructions Recorded Atorvastatin Ca [Lipitor] 40 mg PO HS 11/01/17 Bimatoprost [Lumigan] 1 drop OD DAILY 11/01/17 Carvedilol [Coreg -] 25 mg PO BID 11/01/17 Clopidogrel Bisulfate [Plavix -] 75 mg PO HS 11/01/17 Cyclobenzaprine HCl [Flexeril -] 10 mg PO TID 11/01/17 Dorzolamide HCl/Timolol Maleat 10 ml OD BID 11/01/17 [Cosopt Eye Drops] Furosemide [Lasix -] 40 mg PO BID 11/01/17 Hydralazine HCl 50 mg PO TID 11/01/17 Insulin (Novolog) [Novolog Flexpen] 7 units SQ AC 11/01/17 Isosorbide Mononitrate [Imdur -] 30 mg PO DAILY 11/01/17 Latanoprost 0.005% Eye Drops 1 drop OD HS 11/01/17 [Xalatan 0.005% Eye Drops -] Lisinopril [Prinivil -] 40 mg PO DAILY 11/01/17 pe: Vital Signs Period Temp Pulse Resp BP Sys/House Pulse Ox Last 24 Hr 97.9 F-98.2 F 63-67 16-20 126-154/65-79 97-100 nad no jvd rrr s1s2 no mrg cta bl nl eff aaox3 no le e/c/c abd nt nd pos bs no jaundice diaphoresis pos dp pt no carotid bruits Laboratory Last Values WBC 6.0 K/mm3 (4.0-10.0) 11/01/17 13:20 RBC 4.58 M/mm3 (4.00-5.60) 11/01/17 13:20 Hgb 10.5 GM/dL (11.7-16.9) L 11/01/17 13:20 Hct 34.0 % (35.4-49) L 11/01/17 13:20 MCV 74.2 fl (80-96) L 11/01/17 13:20 MCH 23.0 pg (25.7-33.7) L 11/01/17 13:20 MCHC 31.0 g/dl (32.0-35.9) L 11/01/17 13:20 RDW 14.6 % (11.9-15.9) 11/01/17 13:20 Plt Count 226 K/MM3 (134-434) 11/01/17 13:20 MPV 8.7 fl (7.5-11.1) 11/01/17 13:20 Neutrophils % 61.2 % (42.8-82.8) 11/01/17 13:20 Lymphocytes % 30.9 % (8-40) D 11/01/17 13:20 Monocytes % 5.6 % (3.8-10.2) 11/01/17 13:20 Eosinophils % 1.7 % (0-4.5) 11/01/17 13:20 Basophils % 0.6 % (0-2.0) 11/01/17 13:20 Sodium 138 mmol/L (136-145) 11/02/17 06:12 Potassium 4.6 mmol/L (3.5-5.1) 11/02/17 06:12 Chloride 102 mmol/L (98-107) 11/02/17 06:12 Carbon Dioxide 26 mmol/L (21-32) 11/02/17 06:12 Anion Gap 10 (8-16) 11/02/17 06:12 BUN 31 mg/dL (7-18) H 11/02/17 06:12 Creatinine 3.1 mg/dL (0.7-1.3) H 11/02/17 06:12 Creat Clearance w eGFR 21.45 (>60) 11/01/17 13:20 POC Glucometer 337 UNITS (80-120) 11/02/17 06:52 Random Glucose 288 mg/dL (74-106) H D 11/02/17 06:12 Calcium 8.1 mg/dL (8.5-10.1) L 11/02/17 06:12 Magnesium 2.3 mg/dL (1.8-2.4) 11/01/17 13:20 Total Bilirubin 0.5 mg/dL (0.2-1.0) D 11/01/17 13:20 AST 36 U/L (15-37) 11/01/17 13:20 ALT 33 U/L (12-78) 11/01/17 13:20 Alkaline Phosphatase 89 U/L (45-117) 11/01/17 13:20 Total Protein 6.7 g/dl (6.4-8.2) 11/01/17 13:20 Albumin 2.8 g/dl (3.4-5.0) L 11/01/17 13:20 Acetone, Qual Negative (NEGATIVE) 11/01/17 13:20 ecg: sr, nl intervals, lat twis, no st changes, no sig change from old ecg echo 10/2017: mod lvh, nl lvef, nl rv, mild mr, mild tr, nl rvsp a/p: 62 m hx htn, hld, dm, here with htn. htn: -initially elevated, likely due to noncompliance with meds -improved after giving home meds -increase hydralazine prn for better bp control -echo here shows mod lvh, likely from untreated htn hld: -cont statin dm: stable, per pmd cardiac moon stable for dc if bp remains controlled later today
[2017-11-02] MEDS ORDERED: chlordiazePOXIDE HCL 25 MG CAPSULE PO PRN (14:07)
[2017-11-02] MEDS ORDERED: chlordiazePOXIDE HCL 25 MG CAPSULE PO ONE (14:07)
--- NOTE | 2017-11-02 14:07 | CONSULT ---
Consult Detox [facility] Reason for Current Admission/Consult: PCP abuse Referred by:: Betsy Alatorre - History History of Present Illness: 62 yo m who came to [facility] for admission to rehab for PCP abuse was found to have elevted bp and trasnferred to [facility] for work up found to have JOANNA and awaiting nephrology consult and bp controlled PMHX oud , alcohoism now in remission relapsed to pcp use becaue of life situation adn was binging for 2-3 weeks prior to admission using 1 bag daily. does nto need detox from other drug so misuse at this time as per patient requesting rehab bed when medicallys table - History Source History Provided By: Patient, Medical Record, Caregiver Limitations to Obtaining History: No Limitations - Alcohol/Substance Use Hx Alcohol Use: No (in remission) Hx Substance Use: Yes (oud in remission, no w using PCP) Hx Substance Use Treatment: Yes ([facility] rehab in past) - Current Drug/Alcohol Use PCP Route: Smoking Frequency: Daily Amount used: 1 bag last 2-3 weeks Age of first use: 22 Date of Last Use: 11/02/17 - Significant Medical Findings: 62 yo m not with withdrawal admitted to [facility] fo control of bp, PMHx oud, alcoholism both in remission now actively using PCP does nto need detox, no withdrawal noted, denies nicotine use Assessment Plan - Diagnosis (1) Essential hypertension Status: Chronic (2) Substance induced mood disorder Status: Acute (3) Alcohol dependence Status: Chronic (4) Blind left eye Status: Chronic (5) Cocaine dependence Status: Chronic (6) DM Diabetes mellitus type 2 Status: Chronic (7) Nicotine dependence Status: Chronic (8) PCP (phencyclidine) abuse Status: Chronic (9) Anemia Status: Acute (10) JOANNA (acute kidney injury) Status: Acute - Plan Plan: chart imaging, last reviewed, discussed case with nurse, anders torres and adal paulson, requesting inpatient rehab [facility]. saran is not withdrawing from alcohol or opioids at this time, does not need detox,. Recommend: 1. fluids, mvi, thimine and folic acid as ordered. 2. anemia - work up as per primary team, taking mvi etc. 3. polysubstance use /PCP abuse when medically stable may transfer to [facility] rehab if bed available and insurance accepted. 5. JOANNA- awaiting nephrology consult 6. HTN - controlled as per primary team 8. DM - controlled as per primary team 9. substance induced mood disorder - can give ambien for sleep if indicate or requsted by pateint. Zana Sawant MD [phone] - Medication Detox Regimen/Protocol: Not Applicable
[2017-11-02] MEDS ORDERED: PATIENT'S OWN MEDICATION (NON-FORMULARY) (Bimatoprost [Lumigan] 1 DROP) OD SCH (14:15)
[2017-11-02] MEDS ORDERED: chlordiazePOXIDE HCL 25 MG CAPSULE PO SCH (17:00)
--- NOTE | 2017-11-02 17:48 | CONSULT ---
Consult Consult Specialty:: Nephrology Reason for Consultation:: CKD - History of Present Illness Chief Complaint: sent in for HTN History of Present Illness: Pt is a 62 year old male with pmhx of DM and HTN who was sent in from rehab for hypertension and hyperglycemia. He says he has lost standing DM and HTN. He is not always compliant with meds. He was found to have elevated creatinine. He denies history of CKD. He denies nsaid use. He denies dysuria or hematuria. He denies chest pain or palpitations. - History Source History Provided By: Patient, Medical Record - Past Medical History Cardio/Vascular: Yes: HTN Renal/: Yes: Renal Inusuff Endocrine: Yes: Diabetes Mellitus - Alcohol/Substance Use Hx Alcohol Use: No - Smoking History Smoking history: Current some day smoker Have you smoked in the past 12 months: Yes Aproximately how many cigarettes per day: 5 Home Medications - Allergies Allergies/Adverse Reactions: Allergies Allergy/AdvReac Type Severity Reaction Status Date / Time No Known Allergies Allergy Verified 11/01/17 12:03 - Home Medications Home Medications: Ambulatory Orders Atorvastatin Ca [Lipitor] 40 mg PO HS 11/01/17 Bimatoprost [Lumigan] 1 drop OD DAILY 11/01/17 Carvedilol [Coreg -] 25 mg PO BID 11/01/17 Clopidogrel Bisulfate [Plavix -] 75 mg PO HS 11/01/17 Cyclobenzaprine HCl [Flexeril -] 10 mg PO TID 11/01/17 Dorzolamide HCl/Timolol Maleat [Cosopt Eye Drops] 10 ml OD BID 11/01/17 Furosemide [Lasix -] 40 mg PO BID 11/01/17 Hydralazine HCl 50 mg PO TID 11/01/17 Insulin (Novolog) [Novolog Flexpen] 7 units SQ AC 11/01/17 Isosorbide Mononitrate [Imdur -] 30 mg PO DAILY 11/01/17 Latanoprost 0.005% Eye Drops [Xalatan 0.005% Eye Drops -] 1 drop OD HS 11/01/17 Lisinopril [Prinivil -] 40 mg PO DAILY 11/01/17 Family Disease History - Family Disease History Family Disease History: Diabetes: Mother (), Heart Disease: Mother Review of Systems - Review of Systems Constitutional: reports: No Symptoms Eyes: reports: No Symptoms HENT: reports: No Symptoms Neck: reports: No Symptoms Cardiovascular: reports: No Symptoms Respiratory: reports: No Symptoms Gastrointestinal: reports: No Symptoms Genitourinary: reports: No Symptoms Musculoskeletal: reports: Other (left arm in sling) Neurological: reports: No Symptoms Physical Exam Vital Signs: Vital Signs Temperature 98 F 11/02/17 14:35 Pulse Rate 61 11/02/17 14:35 Respiratory Rate 20 11/02/17 14:35 Blood Pressure 118/60 11/02/17 14:35 O2 Sat by Pulse Oximetry (%) 98 11/02/17 09:00 Constitutional: Yes: Calm Eyes: Yes: Conjunctiva Clear HENT: Yes: Atraumatic Cardiovascular: Yes: S1, S2 Respiratory: Yes: CTA Bilaterally Gastrointestinal: Yes: Soft Renal/: Yes: WNL Breast(s): Yes: WNL Musculoskeletal: Yes: WNL Edema: No Neurological: Yes: Oriented Psychiatric: Yes: Oriented Labs: CBC, BMP 11/01/17 13:20 11/02/17 06:12 Selected Entries 11/01/17 11/02/17 11/02/17 11:54 09:01 14:35 Blood Pressure 196/96 154/77 118/60 Laboratory Tests 02/23/17 02/26/17 11/01/17 20:24 07:00 13:20 WBC 6.0 Hgb 10.5 L Sodium Potassium BUN Creatinine 2.4 H D 2.0 H Random Glucose Ur Random Sodium Ur Random Potassium Ur Random Chloride Urine Creatinine Opiates Screen Methadone Screen Barbiturate Screen Phencyclidine Screen Ur Amphetamines Screen MDMA (Ecstasy) Screen Benzodiazepines Screen Cocaine Screen U Marijuana (THC) Screen Acetone, Qual 11/01/17 11/02/17 11/02/17 13:20 06:12 13:30 WBC Hgb Sodium 135 L 138 Potassium 4.6 BUN 31 H D 31 H Creatinine 3.0 H D 3.1 H Random Glucose 485 H* D 288 H D Ur Random Sodium Ur Random Potassium Ur Random Chloride Urine Creatinine Opiates Screen Pending Methadone Screen Pending Barbiturate Screen Pending Phencyclidine Screen Pending Ur Amphetamines Screen Pending MDMA (Ecstasy) Screen Pending Benzodiazepines Screen Pending Cocaine Screen Pending U Marijuana (THC) Screen Pending Acetone, Qual Negative 11/02/17 11/02/17 13:30 13:30 WBC Hgb Sodium Potassium BUN Creatinine Random Glucose Ur Random Sodium Pending Ur Random Potassium Pending Ur Random Chloride Pending Urine Creatinine Pending Opiates Screen Methadone Screen Barbiturate Screen Phencyclidine Screen Ur Amphetamines Screen MDMA (Ecstasy) Screen Benzodiazepines Screen Cocaine Screen U Marijuana (THC) Screen Acetone, Qual Imaging - Results Ultrasound: Report Reviewed Problem List - Problems (1) CKD (chronic kidney disease) Code(s): N18.9 - CHRONIC KIDNEY DISEASE, UNSPECIFIED (2) Anemia Code(s): D64.9 - ANEMIA, UNSPECIFIED (3) Essential hypertension Code(s): I10 - ESSENTIAL (PRIMARY) HYPERTENSION (4) Substance induced mood disorder Code(s): F19.94 - OTH PSYCHOACTIVE SUBSTANCE USE, UNSP W MOOD DISORDER (5) Alcohol dependence Code(s): F10.20 - ALCOHOL DEPENDENCE, UNCOMPLICATED Assessment/Plan Current Medications Generic Name Dose Route Start Last Admin Trade Name Freq PRN Reason Stop Dose Admin Atorvastatin Calcium 40 mg 11/01/17 22:00 11/01/17 21:09 Lipitor - PO 40 mg HS VALENTINA Administration Carvedilol 25 mg 11/01/17 22:00 11/02/17 09:10 Coreg - PO 25 mg BID VALENTINA Administration Clopidogrel Bisulfate 75 mg 11/01/17 22:00 11/01/17 21:09 Plavix - PO 75 mg HS VALENTINA Administration Cyclobenzaprine HCl 10 mg 11/01/17 15:26 Flexeril - PO Q8H PRN MUSCLE SPASMS Dorzolamide HCl 1 drop 11/01/17 22:00 11/02/17 09:10 Trusopt 2% OD 1 drop BID VALENTINA Administration Heparin Sodium (Porcine) 5,000 unit 11/01/17 22:00 11/02/17 13:52 Heparin - SQ 5,000 unit TID VALENTINA Administration Hydralazine HCl 50 mg 11/01/17 22:00 11/02/17 13:52 Apresoline - PO 50 mg TID VALENTINA Administration Insulin Aspart 1 vial 11/01/17 16:30 11/02/17 16:59 Novolog Vial Sliding Scale - SQ 4 unit ACHS VALENTINA Administration Protocol Isosorbide Mononitrate 30 mg 11/02/17 10:00 11/02/17 09:10 Imdur - PO 30 mg DAILY VALENTINA Administration Multivit/Folic Acid/Iron 1 tab 11/03/17 10:00 Vitamins (Sjr) - PO DAILY VALENTINA Thiamine HCl 100 mg 11/02/17 22:00 Vitamin B1 - PO HS VALENTINA Timolol Maleate 1 drop 11/01/17 22:00 11/02/17 09:11 Timoptic 0.5% OD 1 drop BID VALENTINA Administration Impression 1. CKD with worsening creatinine 2. HTN 3. DM 4. mood disorder 5. HLD Plan - check ua - cont bp meds - will need outpt renal workup for CKD - will comment more on CKD after reviewing UA - check prt to isolation washer ratio - pt has retinal involvement from DM - will follow Dr Eden
[2017-11-02 18:04] LABS: COCAINE, UR NEGATIVE ng/ml (CUTOFF=300); URINE AMPHETAMINES NEGATIVE ng/ml (CUTOFF=500); URINE BARBITURATES NEGATIVE ng/ml (CUTOFF=200); URINE BENZODIAZEPINES NEGATIVE ng/ml (CUTOFF=200)
[2017-11-02 18:05] LABS: METHADONE, UR NEGATIVE ng/ml (CUTOFF=300)
[2017-11-02 18:07] LABS: OPIATES, URI POSITIVE ng/ml (CUTOFF=300); PHENCYCLIDINE,URINE POSITIVE ng/ml (CUTOFF=25)
[2017-11-02] MEDS: CLOPIDOGREL BISULFATE 75 MG TABLET (FP) PO SCH (21:07)
[2017-11-02] MEDS: ATORVASTATIN CA 40 MG TABLET (FP) PO SCH (21:07)
[2017-11-02] MEDS ORDERED: LATANOPROST 0.005% OPHTH SOLN 2.5ML BOTTLE OD SCH (22:00)
[2017-11-02] MEDS: THIAMINE HCL 100 MG TABLET (FP) PO SCH (23:10)
[2017-11-03] MEDS: hydrALAZINE HCL 50 MG TABLET (FP) PO SCH ×3 (06:51→21:00)
[2017-11-03] MEDS: INSULIN SLIDING SCALE (NOVOLOG) 1 VIAL SQ SCH ×4 (06:51→21:01)
[2017-11-03] MEDS: HEPARIN NA (PORCINE) 5,000 UNITS/ML 1ML VIAL SQ SCH ×3 (06:51→21:00)
[2017-11-03 08:22] LABS: ALBUMIN 2.4 g/dl (3.4-5.0); ANION GAP 8 (8-16); BLOOD UREA NITROGEN 32 mg/dL (7-18); CALCIUM 8.4 mg/dL (8.5-10.1); CHLORIDE 103 mmol/L (98-107); CO2 26 mmol/L (21-32); GLUCOSE,RANDOM 221 mg/dL (74-106); POTASSIUM 4.5 mmol/L (3.5-5.1); SGOT/AST 18 U/L (15-37); SODIUM 137 mmol/L (136-145)
[2017-11-03 08:25] LABS: ALK PHOS 72 U/L (45-117); BILIRUBIN,TOTAL 0.6 mg/dL (0.2-1.0); SGPT/ALT 19 U/L (12-78); TOT PROT 5.8 g/dl (6.4-8.2)
[2017-11-03] MEDS ORDERED: PT OWN MED DRAWER 7, Y5N ONE ×2 (09:19→20:31)
[2017-11-03] MEDS: DORZOLAMIDE 2% HCL OPHTHALMIC SOLUTION 10 ML BOTTLE OD SCH ×2 (09:43→21:02)
[2017-11-03] MEDS: CARVEDILOL 25 MG TABLET (FP) PO SCH ×2 (09:43→21:00)
[2017-11-03] MEDS: PRENATAL VITAMINS W/ FOLIC ACID TABLET (FP) PO SCH (09:43)
[2017-11-03] MEDS: ISOSORBIDE MONONITRATE 30 MG TAB.SR.24H (FP) PO SCH (09:43)
[2017-11-03] MEDS: TIMOLOL 0.5% OPHTHALMIC SOL 5 ML BOTTLE OD SCH ×2 (09:44→21:02)
[2017-11-03 10:07] LABS: URINE APPEARANCE CLEAR; URINE BILIRUBIN NEGATIVE (NEGATIVE); URINE BLOOD NEGATIVE (NEGATIVE); URINE COLOR STRAW; URINE GLUCOSE (UA) 2+ (NEGATIVE); URINE KETONE NEGATIVE (NEGATIVE); URINE LEUK ESTERASE NEGATIVE (NEGATIVE); URINE NITRITE NEGATIVE (NEGATIVE); URINE UROBILINOGEN NEGATIVE mg/dL (0.2-1.0)
[2017-11-03 10:11] LABS: EPI CELLS RARE /HPF (FEW); URINE BACTERIA RARE /hpf (NONE SEEN); URINE PROTEIN 2+ (NEGATIVE)
--- NOTE | 2017-11-03 10:54 | PN ---
Progress Note (short form) - Note Progress Note: Subjective: The patient was seen and examined at the bedside, he has no complaints at this time. He reports feeling "blessed today" Current Medications Generic Name Dose Route Start Last Admin Trade Name Tarunq PRN Reason Stop Dose Admin Atorvastatin Calcium 40 mg 11/01/17 22:00 11/02/17 21:07 Lipitor - PO 40 mg HS VALENTINA Administration Carvedilol 25 mg 11/01/17 22:00 11/03/17 09:43 Coreg - PO 25 mg BID VALENTINA Administration Clopidogrel Bisulfate 75 mg 11/01/17 22:00 11/02/17 21:07 Plavix - PO 75 mg HS VALENTINA Administration Cyclobenzaprine HCl 10 mg 11/01/17 15:26 11/03/17 06:50 Flexeril - PO 10 mg Q8H PRN Administration MUSCLE SPASMS Dorzolamide HCl 1 drop 11/01/17 22:00 11/03/17 09:43 Trusopt 2% OD 1 drop BID VALENTINA Administration Heparin Sodium (Porcine) 5,000 unit 11/01/17 22:00 11/03/17 06:51 Heparin - SQ 5,000 unit TID VALENTINA Administration Hydralazine HCl 100 mg 11/03/17 09:25 Apresoline - PO TID VALENTINA Insulin Aspart 1 vial 11/01/17 16:30 11/03/17 06:51 Novolog Vial Sliding Scale - SQ 4 unit ACHS VALENTINA Administration Protocol Isosorbide Mononitrate 30 mg 11/02/17 10:00 11/03/17 09:43 Imdur - PO 30 mg DAILY VALENTINA Administration Multivit/Folic Acid/Iron 1 tab 11/03/17 10:00 11/03/17 09:43 Vitamins (Sjr) - PO 1 tab DAILY VALENTINA Administration Thiamine HCl 100 mg 11/02/17 22:00 11/02/17 23:10 Vitamin B1 - PO 100 mg HS VALENTINA Administration Timolol Maleate 1 drop 11/01/17 22:00 11/03/17 09:44 Timoptic 0.5% OD 1 drop BID VALENTINA Administration Objective: Vital Signs Period Temp Pulse Resp BP Sys/House Pulse Ox Last 24 Hr 98 F-98.7 F 58-101 18-22 118-180/60-87 97-99 Physical Exam: General: NAD, A&Ox3 Lungs: CTA bilaterally Heart: RRR, S1S2 Abd: Soft, non-tender, non-distended. Normoactive bowel sounds Ext: Left arm immobilizer with sling CBCD WBC 6.0 K/mm3 (4.0-10.0) 11/01/17 13:20 RBC 4.58 M/mm3 (4.00-5.60) 11/01/17 13:20 Hgb 10.5 GM/dL (11.7-16.9) L 11/01/17 13:20 Hct 34.0 % (35.4-49) L 11/01/17 13:20 MCV 74.2 fl (80-96) L 11/01/17 13:20 MCHC 31.0 g/dl (32.0-35.9) L 11/01/17 13:20 RDW 14.6 % (11.9-15.9) 11/01/17 13:20 Plt Count 226 K/MM3 (134-434) 11/01/17 13:20 MPV 8.7 fl (7.5-11.1) 11/01/17 13:20 CMP Sodium 137 mmol/L (136-145) 11/03/17 06:20 Potassium 4.5 mmol/L (3.5-5.1) 11/03/17 06:20 Chloride 103 mmol/L (98-107) 11/03/17 06:20 Carbon Dioxide 26 mmol/L (21-32) 11/03/17 06:20 Anion Gap 8 (8-16) 11/03/17 06:20 BUN 32 mg/dL (7-18) H 11/03/17 06:20 Creatinine 3.0 mg/dL (0.7-1.3) H 11/03/17 06:20 Creat Clearance w eGFR 21.45 (>60) 11/03/17 06:20 Random Glucose 221 mg/dL (74-106) H D 11/03/17 06:20 Calcium 8.4 mg/dL (8.5-10.1) L 11/03/17 06:20 Total Bilirubin 0.6 mg/dL (0.2-1.0) 11/03/17 06:20 AST 18 U/L (15-37) D 11/03/17 06:20 ALT 19 U/L (12-78) D 11/03/17 06:20 Alkaline Phosphatase 72 U/L (45-117) 11/03/17 06:20 Total Protein 5.8 g/dl (6.4-8.2) L 11/03/17 06:20 Albumin 2.4 g/dl (3.4-5.0) L 11/03/17 06:20 Assessment: This is a 62 year old male with PMHx of DM, HTN, polysubstance abuse , CAD (s/p stenting?), hyperlipidemia, CKD, who presented to the ED from [facility] with high blood pressure and hyperglycemia. Plan: 1) Hypertensive emergency with JOANNA - Patient reports non-compliance with medications - Continue Imdur 30mg daily - Increased Hydralazine to 100mg po tid - Continue Coreg 25mg po bid - Continue to monitor - Hold Lasix and Lisinopril 10/19 JOANNA - Appreciate cardiology consult 2) JOANNA on CKD - Cr ~2.2 02/2017 - Patient reports CKD - May be worsening CKD vs. JOANNA on CKD - FeUrea 34.4%, prerenal - UA with 2+ protein - Kidney/bladder ultrasound: No hydronephrosis seen. The right kidney with no discrete abnormality. Evaluation of the left renal size is limited - Appreciate nephrology consult 3) Hyperglycemia - BGM ACHS - ISS ACHS - Start Levemir 5u sq hs - F/u endocrine consult 4) Polysubstance abuse - No evidence of acute alcohol withdrawal - Patient reports pcp dependence - Appreciate detox consult 5) F/E/N: - Sodium controlled/diabetic diet - Monitor electrolytes 6) Prophylaxis: - OOB ambulating - SCDs bilaterally - Heparin 5,000u sq tid 7) Dispo: - Requires continued inpatient care CODE STATUS: FULL CODE Visit type - Emergency Visit Emergency Visit: Yes ED Registration Date: 11/01/17 Care time: The patient presented to the Emergency Department on the above date and was hospitalized for further evaluation of their emergent condition. - New Patient This patient is new to me today: No - Critical Care Critical Care patient: No
[2017-11-03] MEDS ORDERED: INSULIN DETEMIR 100 UNITS/ML MDV SQ ONE (11:36)
[2017-11-03] MEDS ORDERED: INSULIN (NOVOLOG) ASPART 100 UNITS/ML 10ML VIAL ONE ×2 (11:36→20:30)
--- NOTE | 2017-11-03 11:49 | PN ---
Progress Note (short form) - Note Progress Note: s: no cp sob palps dizzy o: Vital Signs Period Temp Pulse Resp BP Sys/House Pulse Ox Last 24 Hr 98 F-98.7 F 58-101 18-22 118-180/60-87 97-99 nad no jvd rrr s1s2 no mrg cta bl nl eff aaox3 no le e/c/c abd nt nd pos bs no jaundice diaphoresis Current Medications Generic Name Dose Route Start Last Admin Trade Name Freq PRN Reason Stop Dose Admin Atorvastatin Calcium 40 mg 11/01/17 22:00 11/02/17 21:07 Lipitor - PO 40 mg HS VALENTINA Administration Carvedilol 25 mg 11/01/17 22:00 11/03/17 09:43 Coreg - PO 25 mg BID VALENTINA Administration Clopidogrel Bisulfate 75 mg 11/01/17 22:00 11/02/17 21:07 Plavix - PO 75 mg HS VALENTINA Administration Cyclobenzaprine HCl 10 mg 11/01/17 15:26 11/03/17 06:50 Flexeril - PO 10 mg Q8H PRN Administration MUSCLE SPASMS Dorzolamide HCl 1 drop 11/01/17 22:00 11/03/17 09:43 Trusopt 2% OD 1 drop BID VALENTINA Administration Heparin Sodium (Porcine) 5,000 unit 11/01/17 22:00 11/03/17 06:51 Heparin - SQ 5,000 unit TID VALENTINA Administration Hydralazine HCl 100 mg 11/03/17 09:25 Apresoline - PO TID VALENTINA Insulin Aspart 1 vial 11/01/17 16:30 11/03/17 11:40 Novolog Vial Sliding Scale - SQ 8 unit ACHS VALENTINA Administration Protocol Insulin Detemir 5 units 11/03/17 22:00 Levemir Vial SQ HS VALENTINA Isosorbide Mononitrate 30 mg 11/02/17 10:00 11/03/17 09:43 Imdur - PO 30 mg DAILY VALENTINA Administration Multivit/Folic Acid/Iron 1 tab 11/03/17 10:00 11/03/17 09:43 Vitamins (Sjr) - PO 1 tab DAILY VALENTINA Administration Thiamine HCl 100 mg 11/02/17 22:00 11/02/17 23:10 Vitamin B1 - PO 100 mg HS VALENTINA Administration Timolol Maleate 1 drop 11/01/17 22:00 11/03/17 09:44 Timoptic 0.5% OD 1 drop BID VALENTINA Administration CBC, BMP 11/01/17 13:20 11/03/17 06:20 ecg: sr, nl intervals, lat twis, no st changes, no sig change from old ecg echo 10/2017: mod lvh, nl lvef, nl rv, mild mr, mild tr, nl rvsp a/p: 62 m hx htn, hld, dm, here with htn. htn: -elevated likely due to noncompliance with meds -improved after giving home meds but still high at times so will increase hydralazine to 100 tid -echo here shows mod lvh, likely from untreated htn hld: -cont statin dm: stable, per pmd
--- NOTE | 2017-11-03 12:17 | EKG ---
Test Reason : Blood Pressure : / mmHG Vent. Rate : 069 BPM Atrial Rate : 069 BPM P-R Int : 164 ms QRS Dur : 104 ms QT Int : 428 ms P-R-T Axes : 050 -53 143 degrees QTc Int : 458 ms NORMAL SINUS RHYTHM LEFT ANTERIOR FASCICULAR BLOCK T WAVE ABNORMALITY, CONSIDER LATERAL ISCHEMIA ABNORMAL ECG WHEN COMPARED WITH ECG OF 23-FEB-2017 20:08, NO SIGNIFICANT CHANGE WAS FOUND Confirmed by CONCEPCION MOORE, SUSY ([id number]) on 11/03/2017 12:17:36 PM Referred By: Confirmed By:SUSY JAVIER MD
[2017-11-03] MEDS ORDERED: chlordiazePOXIDE HCL 25 MG CAPSULE PO SCH (17:00)
--- NOTE | 2017-11-03 17:42 | PN ---
Progress Note, Physician History of Present Illness: Pt seen and examined at bedside. I again discussed his renal function with him. He says he saw a underground repairer years ago however has not followed up with him. He does not know the name of the underground repairer but says he was not in [place]. - Current Medication List Current Medications: Active Medications Atorvastatin Calcium (Lipitor -) 40 mg PO HS [facility] Last Admin: 11/02/17 21:07 Dose: 40 mg Carvedilol (Coreg -) 25 mg PO BID [facility] Last Admin: 11/03/17 09:43 Dose: 25 mg Clopidogrel Bisulfate (Plavix -) 75 mg PO HS [facility] Last Admin: 11/02/17 21:07 Dose: 75 mg Cyclobenzaprine HCl (Flexeril -) 10 mg PO Q8H PRN PRN Reason: MUSCLE SPASMS Last Admin: 11/03/17 06:50 Dose: 10 mg Dorzolamide HCl (Trusopt 2%) 1 drop OD BID [facility] Last Admin: 11/03/17 09:43 Dose: 1 drop Heparin Sodium (Porcine) (Heparin -) 5,000 unit SQ TID [facility] Last Admin: 11/03/17 13:07 Dose: 5,000 unit Hydralazine HCl (Apresoline -) 100 mg PO TID [facility] Last Admin: 11/03/17 13:07 Dose: 100 mg Insulin Aspart (Novolog Vial Sliding Scale -) 1 vial SQ ACHS [facility] PRN Reason: Protocol Insulin Detemir (Levemir Vial) 5 units SQ [facility] Isosorbide Mononitrate (Imdur -) 30 mg PO DAILY [facility] Last Admin: 11/03/17 09:43 Dose: 30 mg Multivit/Folic Acid/Iron ( Vitamins (Sjr) -) 1 tab PO DAILY [facility] Last Admin: 11/03/17 09:43 Dose: 1 tab Thiamine HCl (Vitamin B1 -) 100 mg PO [facility] Last Admin: 11/02/17 23:10 Dose: 100 mg Timolol Maleate (Timoptic 0.5%) 1 drop OD BID [facility] Last Admin: 11/03/17 09:44 Dose: 1 drop - Objective Vital Signs: Vital Signs Temperature 98.4 F 11/03/17 13:07 Pulse Rate 66 11/03/17 13:07 Respiratory Rate 18 02/17/18 13:07 Blood Pressure 148/76 02/17/18 13:07 O2 Sat by Pulse Oximetry (%) 97 11/03/17 09:00 Constitutional: Yes: Calm Eyes: Yes: Conjunctiva Clear HENT: Yes: Atraumatic Neck: Yes: Supple Cardiovascular: Yes: S1, S2 Respiratory: Yes: CTA Bilaterally Gastrointestinal: Yes: Normal Bowel Sounds, Soft Genitourinary: Yes: WNL Musculoskeletal: Yes: Other (arm in splint) Edema: No Neurological: Yes: Oriented Psychiatric: Yes: Oriented Labs: CBC, BMP 11/01/17 13:20 11/03/17 06:20 Problem List - Problems (1) CKD (chronic kidney disease) Code(s): N18.9 - CHRONIC KIDNEY DISEASE, UNSPECIFIED (2) Anemia Code(s): D64.9 - ANEMIA, UNSPECIFIED (3) Essential hypertension Code(s): I10 - ESSENTIAL (PRIMARY) HYPERTENSION (4) Substance induced mood disorder Code(s): F19.94 - OTH PSYCHOACTIVE SUBSTANCE USE, UNSP W MOOD DISORDER (5) Alcohol dependence Code(s): F10.20 - ALCOHOL DEPENDENCE, UNCOMPLICATED Assessment/Plan Current Medications Generic Name Dose Route Start Last Admin Trade Name Freq PRN Reason Stop Dose Admin Atorvastatin Calcium 40 mg 11/01/17 22:00 11/02/17 21:07 Lipitor - PO 40 mg HS [facility] Administration Carvedilol 25 mg 11/01/17 22:00 11/03/17 09:43 Coreg - PO 25 mg BID [facility] Administration Clopidogrel Bisulfate 75 mg 11/01/17 22:00 11/02/17 21:07 Plavix - PO 75 mg HS [facility] Administration Cyclobenzaprine HCl 10 mg 11/01/17 15:26 11/03/17 06:50 Flexeril - PO 10 mg Q8H PRN Administration MUSCLE SPASMS Dorzolamide HCl 1 drop 11/01/17 22:00 11/03/17 09:43 Trusopt 2% OD 1 drop BID [facility] Administration Heparin Sodium (Porcine) 5,000 unit 11/01/17 22:00 11/03/17 13:07 Heparin - SQ 5,000 unit TID [facility] Administration Hydralazine HCl 100 mg 11/03/17 09:25 11/03/17 13:07 Apresoline - PO 100 mg TID [facility] Administration Insulin Aspart 1 vial 11/03/17 17:29 Novolog Vial Sliding Scale - SQ ACHS [facility] Protocol Insulin Detemir 5 units 11/03/17 22:00 Levemir Vial SQ HS [facility] Isosorbide Mononitrate 30 mg 11/02/17 10:00 11/03/17 09:43 Imdur - PO 30 mg DAILY [facility] Administration Multivit/Folic Acid/Iron 1 tab 11/03/17 10:00 11/03/17 09:43 Vitamins (Sjr) - PO 1 tab DAILY [facility] Administration Thiamine HCl 100 mg 11/02/17 22:00 11/02/17 23:10 Vitamin B1 - PO 100 mg HS [facility] Administration Timolol Maleate 1 drop 11/01/17 22:00 11/03/17 09:44 Timoptic 0.5% OD 1 drop BID [facility] Administration Laboratory Tests 11/03/17 09:35 Urine Protein 2+ H Impression 1. CKD with worsening creatinine 2. HTN 3. DM 4. mood disorder 5. HLD Plan - pt will need renal workup for proteinuria - pt has history of non compliance with meds, encouraged compliance - likely has ckd secondary to uncontrolled dm and htn - check prt to director group sales ratio - will follow Dr Eden
[2017-11-03] MEDS: THIAMINE HCL 100 MG TABLET (FP) PO SCH (21:00)
[2017-11-03] MEDS: ATORVASTATIN CA 40 MG TABLET (FP) PO SCH (21:00)
[2017-11-03] MEDS: CLOPIDOGREL BISULFATE 75 MG TABLET (FP) PO SCH (21:00)
[2017-11-03] MEDS: INSULIN DETEMIR 100 UNITS/ML MDV SQ SCH (21:01)
[2017-11-04] MEDS: INSULIN SLIDING SCALE (NOVOLOG) 1 VIAL SQ SCH ×4 (06:30→23:13)
[2017-11-04] MEDS: HEPARIN NA (PORCINE) 5,000 UNITS/ML 1ML VIAL SQ SCH ×3 (06:30→23:12)
[2017-11-04] MEDS: hydrALAZINE HCL 50 MG TABLET (FP) PO SCH ×3 (06:30→23:11)
[2017-11-04 08:02] LABS: HEMATOCRIT 30.5 % (35.4-49); HEMOGLOBIN 9.9 GM/dL (11.7-16.9); MCH 23.6 pg (25.7-33.7); MCHC 32.6 g/dl (32.0-35.9); MEAN CELL VOLUME 72.5 fl (80-96); MEAN PLT VOLUME 8.1 fl (7.5-11.1); PLATELET COUNT 225 K/MM3 (134-434); RDW 14.3 % (11.9-15.9); WHITE BLOOD COUNT 4.7 K/mm3 (4.0-10.0)
[2017-11-04 08:08] LABS: ALBUMIN 2.4 g/dl (3.4-5.0)
[2017-11-04 08:10] LABS: ALK PHOS 68 U/L (45-117); BILIRUBIN,TOTAL 0.5 mg/dL (0.2-1.0); SGOT/AST 11 U/L (15-37); SGPT/ALT 15 U/L (12-78); TOT PROT 5.5 g/dl (6.4-8.2)
[2017-11-04] MEDS: ISOSORBIDE MONONITRATE 30 MG TAB.SR.24H (FP) PO SCH (09:09)
[2017-11-04] MEDS: CARVEDILOL 25 MG TABLET (FP) PO SCH ×2 (09:09→23:12)
[2017-11-04] MEDS: PRENATAL VITAMINS W/ FOLIC ACID TABLET (FP) PO SCH (09:09)
[2017-11-04] MEDS: DORZOLAMIDE 2% HCL OPHTHALMIC SOLUTION 10 ML BOTTLE OD SCH ×2 (09:09→23:12)
[2017-11-04] MEDS: TIMOLOL 0.5% OPHTHALMIC SOL 5 ML BOTTLE OD SCH ×2 (09:09→23:12)
--- NOTE | 2017-11-04 10:55 | PN ---
Progress Note (short form) - Note Progress Note: s: no cp sob palps dizzy o: Vital Signs Period Temp Pulse Resp BP Sys/House Pulse Ox Last 24 Hr 98.1 F-98.9 F 60-68 18-20 146-188/76-95 97-97 nad no jvd rrr s1s2 no mrg cta bl nl eff aaox3 no le e/c/c abd nt nd pos bs no jaundice diaphoresis Current Medications Generic Name Dose Route Start Last Admin Trade Name Freq PRN Reason Stop Dose Admin Atorvastatin Calcium 40 mg 11/01/17 22:00 11/03/17 21:00 Lipitor - PO 40 mg HS [facility] Administration Carvedilol 25 mg 11/01/17 22:00 11/04/17 09:09 Coreg - PO 25 mg BID [facility] Administration Clopidogrel Bisulfate 75 mg 11/01/17 22:00 11/03/17 21:00 Plavix - PO 75 mg HS [facility] Administration Cyclobenzaprine HCl 10 mg 11/01/17 15:26 11/03/17 06:50 Flexeril - PO 10 mg Q8H PRN Administration MUSCLE SPASMS Dorzolamide HCl 1 drop 11/01/17 22:00 11/04/17 09:09 Trusopt 2% OD 1 drop BID [facility] Administration Heparin Sodium (Porcine) 5,000 unit 11/01/17 22:00 11/04/17 06:30 Heparin - SQ 5,000 unit TID [facility] Administration Hydralazine HCl 100 mg 11/03/17 09:25 11/04/17 06:30 Apresoline - PO 100 mg TID [facility] Administration Insulin Aspart 1 vial 11/03/17 17:29 11/04/17 06:30 Novolog Vial Sliding Scale - SQ 2 unit ACHS [facility] Administration Protocol Insulin Detemir 5 units 11/03/17 22:00 11/03/17 21:01 Levemir Vial SQ 5 unit HS [facility] Administration Isosorbide Mononitrate 30 mg 11/02/17 10:00 11/04/17 09:09 Imdur - PO 30 mg DAILY [facility] Administration Multivit/Folic Acid/Iron 1 tab 11/03/17 10:00 11/04/17 09:09 Vitamins (Sjr) - PO 1 tab DAILY [facility] Administration Thiamine HCl 100 mg 11/02/17 22:00 11/03/17 21:00 Vitamin B1 - PO 100 mg HS [facility] Administration Timolol Maleate 1 drop 11/01/17 22:00 11/04/17 09:09 Timoptic 0.5% OD 1 drop BID [facility] Administration CBC, BMP 11/04/17 06:25 ecg: sr, nl intervals, lat twis, no st changes, no sig change from old ecg echo 10/2017: mod lvh, nl lvef, nl rv, mild mr, mild tr, nl rvsp a/p: 62 m hx htn, hld, dm, here with htn. htn: -cont current meds, bp improved -would add norvasc next if bp elevated again -echo here shows mod lvh, likely from untreated htn hld: -cont statin dm: stable, per pmd
[2017-11-04 11:39] LABS: BLOOD UREA NITROGEN 30 mg/dl (7-18); GLUCOSE,RANDOM 140 mg/dl (74-106); SODIUM 139 mmol/L (136-145)
[2017-11-04 11:40] LABS: ANION GAP 9 (8-16); CALCIUM 8.1 mg/dl (8.4-10.2); CHLORIDE 106 mmol/L (98-107); CO2 24 mmol/L (22-28); POTASSIUM 4.3 mmol/L (3.5-5.1)
--- NOTE | 2017-11-04 14:30 | PN ---
Progress Note (short form) - Note Progress Note: Subjective: The patient was seen and examined at the bedside, he has no complaints at this time. He reports feeling "blessed today" Current Medications Generic Name Dose Route Start Last Admin Trade Name Freq PRN Reason Stop Dose Admin Atorvastatin Calcium 40 mg 11/01/17 22:00 11/03/17 21:00 Lipitor - PO 40 mg HS [facility] Administration Carvedilol 25 mg 11/01/17 22:00 11/04/17 09:09 Coreg - PO 25 mg BID [facility] Administration Clopidogrel Bisulfate 75 mg 11/01/17 22:00 11/03/17 21:00 Plavix - PO 75 mg HS [facility] Administration Cyclobenzaprine HCl 10 mg 11/01/17 15:26 11/03/17 06:50 Flexeril - PO 10 mg Q8H PRN Administration MUSCLE SPASMS Dorzolamide HCl 1 drop 11/01/17 22:00 11/04/17 09:09 Trusopt 2% OD 1 drop BID [facility] Administration Heparin Sodium (Porcine) 5,000 unit 11/01/17 22:00 11/04/17 13:42 Heparin - SQ 5,000 unit TID [facility] Administration Hydralazine HCl 100 mg 11/03/17 09:25 11/04/17 13:42 Apresoline - PO 100 mg TID [facility] Administration Insulin Aspart 1 vial 11/03/17 17:29 11/04/17 11:42 Novolog Vial Sliding Scale - SQ 6 unit ACHS [facility] Administration Protocol Insulin Detemir 5 units 11/03/17 22:00 11/03/17 21:01 Levemir Vial SQ 5 unit HS [facility] Administration Isosorbide Mononitrate 30 mg 11/02/17 10:00 11/04/17 09:09 Imdur - PO 30 mg DAILY [facility] Administration Multivit/Folic Acid/Iron 1 tab 11/03/17 10:00 11/04/17 09:09 Vitamins (Sjr) - PO 1 tab DAILY [facility] Administration Thiamine HCl 100 mg 11/02/17 22:00 11/03/17 21:00 Vitamin B1 - PO 100 mg HS [facility] Administration Timolol Maleate 1 drop 11/01/17 22:00 11/04/17 09:09 Timoptic 0.5% OD 1 drop BID [facility] Administration Objective: Vital Signs Period Temp Pulse Resp BP Sys/House Pulse Ox Last 24 Hr 98.1 F-98.9 F 60-68 20-20 146-188/81-95 97-97 Physical Exam: General: NAD, A&Ox3 Lungs: CTA bilaterally Heart: RRR, S1S2 Abd: Soft, non-tender, non-distended. Normoactive bowel sounds Ext: Left arm immobilizer with sling MSK: Left anterior ribs with tenderness CBCD WBC 4.7 K/mm3 (4.0-10.0) 11/04/17 06:25 RBC 4.20 M/mm3 (4.00-5.60) 11/04/17 06:25 Hgb 9.9 GM/dL (11.7-16.9) L 11/04/17 06:25 Hct 30.5 % (35.4-49) L 11/04/17 06:25 MCV 72.5 fl (80-96) L 11/04/17 06:25 MCHC 32.6 g/dl (32.0-35.9) 11/04/17 06:25 RDW 14.3 % (11.9-15.9) 11/04/17 06:25 Plt Count 225 K/MM3 (134-434) 11/04/17 06:25 MPV 8.1 fl (7.5-11.1) 11/04/17 06:25 CMP Sodium 139 mmol/L (136-145) 11/04/17 06:25 Potassium 4.3 mmol/L (3.5-5.1) 11/04/17 06:25 Chloride 106 mmol/L (98-107) 11/04/17 06:25 Carbon Dioxide 24 mmol/L (22-28) 11/04/17 06:25 Anion Gap 9 (8-16) 11/04/17 06:25 BUN 30 mg/dl (7-18) H 11/04/17 06:25 Creatinine 3.0 mg/dl (0.6-1.3) H 11/04/17 06:25 Creat Clearance w eGFR 21.45 (>60) 11/04/17 06:25 Random Glucose 140 mg/dl (74-106) H 11/04/17 06:25 Calcium 8.1 mg/dl (8.4-10.2) L 11/04/17 06:25 Total Bilirubin 0.5 mg/dL (0.2-1.0) 11/04/17 06:25 AST 11 U/L (15-37) L D 11/04/17 06:25 ALT 15 U/L (12-78) D 11/04/17 06:25 Alkaline Phosphatase 68 U/L (45-117) 11/04/17 06:25 Total Protein 5.5 g/dl (6.4-8.2) L 11/04/17 06:25 Albumin 2.4 g/dl (3.4-5.0) L 11/04/17 06:25 Assessment: This is a 62 year old male with PMHx of DM, HTN, polysubstance abuse , CAD (s/p stenting?), hyperlipidemia, CKD, who presented to the ED from [facility] with high blood pressure and hyperglycemia. Plan: 1) Hypertensive emergency with JOANNA - Patient reports non-compliance with medications - Continue Imdur 30mg daily - Continue Hydralazine to 100mg po tid - Continue Coreg 25mg po bid - Continue to monitor - Hold Lasix and Lisinopril 2/ JOANNA - Appreciate cardiology consult 2) JOANNA on CKD - Cr ~2.2 02/2017 - Patient reports CKD - May be worsening CKD vs. JOANNA on CKD - FeUrea 34.4%, prerenal - UA with 2+ protein - Kidney/bladder ultrasound: No hydronephrosis seen. The right kidney with no discrete abnormality. Evaluation of the left renal size is limited - Appreciate nephrology consult, further workup as outpatient 3) Hyperglycemia - BGM ACHS - ISS ACHS - Continue Levemir 5u sq hs - F/u endocrine consult 4) Polysubstance abuse - No evidence of acute alcohol withdrawal - Patient reports pcp dependence - Appreciate detox consult 5) F/E/N: - Sodium controlled/diabetic diet - Monitor electrolytes 6) Prophylaxis: - OOB ambulating - SCDs bilaterally - Heparin 5,000u sq tid 7) Dispo: - Awaiting bed at [facility] rehab CODE STATUS: FULL CODE Visit type - Emergency Visit Emergency Visit: Yes ED Registration Date: 11/01/17 Care time: The patient presented to the Emergency Department on the above date and was hospitalized for further evaluation of their emergent condition. - New Patient This patient is new to me today: No - Critical Care Critical Care patient: No
[2017-11-04] MEDS ORDERED: chlordiazePOXIDE 5 MG CAPSULE PO SCH (17:00)
[2017-11-04 18:40] LABS: URINE CREATININE 66.7 mg/dL (20-370)
--- NOTE | 2017-11-04 19:43 | PN ---
Progress Note, Physician History of Present Illness: Pt seen and examined at bedside. He is awake and appears comfortable. He denies shortness of breath. - Current Medication List Current Medications: Active Medications Atorvastatin Calcium (Lipitor -) 40 mg PO HS [facility] Last Admin: 11/03/17 21:00 Dose: 40 mg Carvedilol (Coreg -) 25 mg PO BID [facility] Last Admin: 11/04/17 09:09 Dose: 25 mg Clopidogrel Bisulfate (Plavix -) 75 mg PO HS [facility] Last Admin: 11/03/17 21:00 Dose: 75 mg Cyclobenzaprine HCl (Flexeril -) 10 mg PO Q8H PRN PRN Reason: MUSCLE SPASMS Last Admin: 11/03/17 06:50 Dose: 10 mg Dorzolamide HCl (Trusopt 2%) 1 drop OD BID [facility] Last Admin: 11/04/17 09:09 Dose: 1 drop Heparin Sodium (Porcine) (Heparin -) 5,000 unit SQ TID [facility] Last Admin: 11/04/17 13:42 Dose: 5,000 unit Hydralazine HCl (Apresoline -) 100 mg PO TID [facility] Last Admin: 11/04/17 13:42 Dose: 100 mg Insulin Aspart (Novolog Vial Sliding Scale -) 1 vial SQ [facility] PRN Reason: Protocol Last Admin: 11/04/17 16:51 Dose: 8 unit Insulin Detemir (Levemir Vial) 5 units SQ [facility] Last Admin: 11/03/17 21:01 Dose: 5 unit Isosorbide Mononitrate (Imdur -) 30 mg PO DAILY [facility] Last Admin: 11/04/17 09:09 Dose: 30 mg Multivit/Folic Acid/Iron ( Vitamins (Sjr) -) 1 tab PO DAILY [facility] Last Admin: 11/04/17 09:09 Dose: 1 tab Thiamine HCl (Vitamin B1 -) 100 mg PO [facility] Last Admin: 11/03/17 21:00 Dose: 100 mg Timolol Maleate (Timoptic 0.5%) 1 drop OD BID [facility] Last Admin: 11/04/17 09:09 Dose: 1 drop - Objective Vital Signs: Vital Signs Temperature 98.9 F 11/04/17 09:00 Pulse Rate 68 11/04/17 09:00 Respiratory Rate 20 11/04/17 09:00 Blood Pressure 170/86 11/04/17 09:00 O2 Sat by Pulse Oximetry (%) 97 11/04/17 09:00 Constitutional: Yes: Calm Eyes: Yes: Conjunctiva Clear HENT: Yes: Atraumatic Cardiovascular: Yes: S1, S2 Respiratory: Yes: CTA Bilaterally Gastrointestinal: Yes: Soft Genitourinary: Yes: WNL Edema: No Neurological: Yes: Oriented Labs: CBC, BMP 11/04/17 06:25 11/04/17 06:25 Problem List - Problems (1) CKD (chronic kidney disease) Code(s): N18.9 - CHRONIC KIDNEY DISEASE, UNSPECIFIED (2) Anemia Code(s): D64.9 - ANEMIA, UNSPECIFIED (3) Essential hypertension Code(s): I10 - ESSENTIAL (PRIMARY) HYPERTENSION (4) Substance induced mood disorder Code(s): F19.94 - OTH PSYCHOACTIVE SUBSTANCE USE, UNSP W MOOD DISORDER (5) Alcohol dependence Code(s): F10.20 - ALCOHOL DEPENDENCE, UNCOMPLICATED Assessment/Plan Current Medications Generic Name Dose Route Start Last Admin Trade Name Freq PRN Reason Stop Dose Admin Atorvastatin Calcium 40 mg 11/01/17 22:00 11/03/17 21:00 Lipitor - PO 40 mg HS [facility] Administration Carvedilol 25 mg 11/01/17 22:00 11/04/17 09:09 Coreg - PO 25 mg BID [facility] Administration Clopidogrel Bisulfate 75 mg 11/01/17 22:00 11/03/17 21:00 Plavix - PO 75 mg HS [facility] Administration Cyclobenzaprine HCl 10 mg 11/01/17 15:26 11/03/17 06:50 Flexeril - PO 10 mg Q8H PRN Administration MUSCLE SPASMS Dorzolamide HCl 1 drop 11/01/17 22:00 11/04/17 09:09 Trusopt 2% OD 1 drop BID [facility] Administration Heparin Sodium (Porcine) 5,000 unit 11/01/17 22:00 11/04/17 13:42 Heparin - SQ 5,000 unit TID [facility] Administration Hydralazine HCl 100 mg 11/03/17 09:25 11/04/17 13:42 Apresoline - PO 100 mg TID [facility] Administration Insulin Aspart 1 vial 11/03/17 17:29 11/04/17 16:51 Novolog Vial Sliding Scale - SQ 8 unit ACHS [facility] Administration Protocol Insulin Detemir 5 units 11/03/17 22:00 11/03/17 21:01 Levemir Vial SQ 5 unit HS [facility] Administration Isosorbide Mononitrate 30 mg 11/02/17 10:00 11/04/17 09:09 Imdur - PO 30 mg DAILY [facility] Administration Multivit/Folic Acid/Iron 1 tab 11/03/17 10:00 11/04/17 09:09 Vitamins (Sjr) - PO 1 tab DAILY [facility] Administration Thiamine HCl 100 mg 11/02/17 22:00 11/03/17 21:00 Vitamin B1 - PO 100 mg HS [facility] Administration Timolol Maleate 1 drop 11/01/17 22:00 11/04/17 09:09 Timoptic 0.5% OD 1 drop BID [facility] Administration Laboratory Tests 11/04/17 17:00 Protein/Creatinin Ratio Pending Impression 1. CKD with worsening creatinine 2. HTN 3. DM 4. mood disorder 5. 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
[2017-11-04] MEDS ORDERED: PT OWN MED DRAWER 7, Y5N ONE ×2 (22:50→23:44)
[2017-11-04] MEDS ORDERED: INSULIN (NOVOLOG) ASPART 100 UNITS/ML 10ML VIAL ONE (22:51)
[2017-11-04] MEDS: CLOPIDOGREL BISULFATE 75 MG TABLET (FP) PO SCH (23:11)
[2017-11-04] MEDS: ATORVASTATIN CA 40 MG TABLET (FP) PO SCH (23:11)
[2017-11-04] MEDS: THIAMINE HCL 100 MG TABLET (FP) PO SCH (23:12)
[2017-11-04] MEDS: INSULIN DETEMIR 100 UNITS/ML MDV SQ SCH (23:15)
[2017-11-04 23:39] LABS: RATIO URIN PROTEIN/URIN CREAT 3.18 MG/DL
[2017-11-05] MEDS: HEPARIN NA (PORCINE) 5,000 UNITS/ML 1ML VIAL SQ SCH ×3 (06:50→21:44)
[2017-11-05] MEDS: INSULIN SLIDING SCALE (NOVOLOG) 1 VIAL SQ SCH ×4 (06:51→21:45)
[2017-11-05] MEDS: hydrALAZINE HCL 50 MG TABLET (FP) PO SCH ×3 (06:51→21:44)
[2017-11-05 07:01] LABS: BASO % 0.3 % (0-2.0); EOS % 1.7 % (0-4.5); HEMATOCRIT 29.1 % (35.4-49); HEMOGLOBIN 9.6 GM/dL (11.7-16.9); LYMPH % 40.8 % (8-40); MCH 24.1 pg (25.7-33.7); MEAN CELL VOLUME 73.1 fl (80-96); MEAN PLT VOLUME 8.2 fl (7.5-11.1); MONO % 5.1 % (3.8-10.2); NEUT % 52.1 % (42.8-82.8); PLATELET COUNT 243 K/MM3 (134-434); RBC 3.99 M/mm3 (4.00-5.60); RDW 14.4 % (11.9-15.9); WHITE BLOOD COUNT 4.3 K/mm3 (4.0-10.0)
[2017-11-05] MEDS ORDERED: INSULIN (NOVOLOG) ASPART 100 UNITS/ML 10ML VIAL ONE ×3 (07:36→21:13)
[2017-11-05] MEDS ORDERED: PT OWN MED DRAWER 7, Y5N ONE ×2 (07:37→21:15)
[2017-11-05 07:45] LABS: ALBUMIN 2.4 g/dl (3.4-5.0); ANION GAP 9 (8-16); BLOOD UREA NITROGEN 30 mg/dL (7-18); CALCIUM 8.2 mg/dL (8.5-10.1); CHLORIDE 104 mmol/L (98-107); CO2 25 mmol/L (21-32); GLUCOSE,RANDOM 183 mg/dL (74-106); POTASSIUM 4.3 mmol/L (3.5-5.1); SGPT/ALT 14 U/L (12-78); SODIUM 138 mmol/L (136-145)
[2017-11-05 07:48] LABS: ALK PHOS 68 U/L (45-117); BILIRUBIN,TOTAL 0.6 mg/dL (0.2-1.0); CREATININE 2.9 mg/dL (0.7-1.3); SGOT/AST 12 U/L (15-37); TOT PROT 5.4 g/dl (6.4-8.2)
[2017-11-05] MEDS: DORZOLAMIDE 2% HCL OPHTHALMIC SOLUTION 10 ML BOTTLE OD SCH ×2 (09:15→21:44)
[2017-11-05] MEDS: CARVEDILOL 25 MG TABLET (FP) PO SCH ×2 (09:15→21:44)
[2017-11-05] MEDS: ISOSORBIDE MONONITRATE 30 MG TAB.SR.24H (FP) PO SCH (09:15)
[2017-11-05] MEDS: PRENATAL VITAMINS W/ FOLIC ACID TABLET (FP) PO SCH (09:15)
[2017-11-05] MEDS: TIMOLOL 0.5% OPHTHALMIC SOL 5 ML BOTTLE OD SCH ×2 (09:15→21:44)
[2017-11-05] MEDS ORDERED: ZOLPIDEM TARTRATE 5 MG TABLET PO PRN (09:52)
[2017-11-05] MEDS: amLODIPine BESYLATE 5 MG TABLET (FP) PO SCH (09:54)
--- NOTE | 2017-11-05 11:00 | PN ---
Progress Note (short form) - Note Progress Note: s: no cp sob palps dizzy o: Vital Signs Period Temp Pulse Resp BP Sys/House Pulse Ox Last 24 Hr 98.1 F-98.6 F 58-64 20-20 147-175/76-86 98-99 nad no jvd rrr s1s2 no mrg cta bl nl eff aaox3 no le e/c/c abd nt nd pos bs no jaundice diaphoresis Current Medications Generic Name Dose Route Start Last Admin Trade Name Freq PRN Reason Stop Dose Admin Amlodipine Besylate 5 mg 11/05/17 10:00 11/05/17 09:54 Norvasc - PO 5 mg DAILY [facility] Administration Atorvastatin Calcium 40 mg 11/01/17 22:00 11/04/17 23:11 Lipitor - PO 40 mg HS [facility] Administration Carvedilol 25 mg 11/01/17 22:00 11/05/17 09:15 Coreg - PO 25 mg BID [facility] Administration Clopidogrel Bisulfate 75 mg 11/01/17 22:00 11/04/17 23:11 Plavix - PO 75 mg HS [facility] Administration Cyclobenzaprine HCl 10 mg 11/01/17 15:26 11/03/17 06:50 Flexeril - PO 10 mg Q8H PRN Administration MUSCLE SPASMS Dorzolamide HCl 1 drop 11/01/17 22:00 11/05/17 09:15 Trusopt 2% OD 1 drop BID [facility] Administration Heparin Sodium (Porcine) 5,000 unit 11/01/17 22:00 11/05/17 06:50 Heparin - SQ 5,000 unit TID [facility] Administration Hydralazine HCl 100 mg 11/03/17 09:25 11/05/17 06:51 Apresoline - PO 100 mg TID [facility] Administration Insulin Aspart 1 vial 11/03/17 17:29 11/05/17 06:51 Novolog Vial Sliding Scale - SQ 2 unit ACHS [facility] Administration Protocol Insulin Detemir 5 units 11/03/17 22:00 11/04/17 23:15 Levemir Vial SQ 5 unit HS [facility] Administration Isosorbide Mononitrate 30 mg 11/02/17 10:00 11/05/17 09:15 Imdur - PO 30 mg DAILY [facility] Administration Multivit/Folic Acid/Iron 1 tab 11/03/17 10:00 11/05/17 09:15 Vitamins (Sjr) - PO 1 tab DAILY [facility] Administration Thiamine HCl 100 mg 11/02/17 22:00 11/04/17 23:12 Vitamin B1 - PO 100 mg HS [facility] Administration Timolol Maleate 1 drop 11/01/17 22:00 11/05/17 09:15 Timoptic 0.5% OD 1 drop BID [facility] Administration Zolpidem Tartrate 10 mg 11/05/17 09:52 Ambien - PO HS PRN INSOMNIA CBC, BMP 11/05/17 05:35 11/05/17 05:35 ecg: sr, nl intervals, lat twis, no st changes, no sig change from old ecg echo 10/2017: mod lvh, nl lvef, nl rv, mild mr, mild tr, nl rvsp a/p: 62 m hx htn, hld, dm, here with htn. htn: -cont current meds, bp improved -will add norvasc 5 for better control -echo here shows mod lvh, likely from untreated htn hld: -cont statin dm: stable, per pmd
--- NOTE | 2017-11-05 19:29 | PN ---
Progress Note, Physician History of Present Illness: Pt seen and examined at bedside. He has no complaints. He denies shortness of breath. He denies dysuria. - Current Medication List Current Medications: Active Medications Amlodipine Besylate (Norvasc -) 5 mg PO DAILY [facility] Last Admin: 11/05/17 09:54 Dose: 5 mg Atorvastatin Calcium (Lipitor -) 40 mg PO HS [facility] Last Admin: 11/04/17 23:11 Dose: 40 mg Carvedilol (Coreg -) 25 mg PO BID [facility] Last Admin: 11/05/17 09:15 Dose: 25 mg Clopidogrel Bisulfate (Plavix -) 75 mg PO HS [facility] Last Admin: 11/04/17 23:11 Dose: 75 mg Cyclobenzaprine HCl (Flexeril -) 10 mg PO Q8H PRN PRN Reason: MUSCLE SPASMS Last Admin: 11/03/17 06:50 Dose: 10 mg Dorzolamide HCl (Trusopt 2%) 1 drop OD BID [facility] Last Admin: 11/05/17 09:15 Dose: 1 drop Heparin Sodium (Porcine) (Heparin -) 5,000 unit SQ TID [facility] Last Admin: 11/05/17 13:12 Dose: 5,000 unit Hydralazine HCl (Apresoline -) 100 mg PO TID [facility] Last Admin: 11/05/17 13:12 Dose: 100 mg Insulin Aspart (Novolog Vial Sliding Scale -) 1 vial SQ [facility] PRN Reason: Protocol Last Admin: 11/05/17 16:44 Dose: 2 unit Insulin Detemir (Levemir Vial) 5 units SQ [facility] Last Admin: 11/04/17 23:15 Dose: 5 unit Isosorbide Mononitrate (Imdur -) 30 mg PO DAILY [facility] Last Admin: 11/05/17 09:15 Dose: 30 mg Multivit/Folic Acid/Iron ( Vitamins (Sjr) -) 1 tab PO DAILY [facility] Last Admin: 11/05/17 09:15 Dose: 1 tab Thiamine HCl (Vitamin B1 -) 100 mg PO [facility] Last Admin: 11/04/17 23:12 Dose: 100 mg Timolol Maleate (Timoptic 0.5%) 1 drop OD BID [facility] Last Admin: 11/05/17 09:15 Dose: 1 drop Zolpidem Tartrate (Ambien -) 10 mg PO HS PRN PRN Reason: INSOMNIA - Objective Vital Signs: Vital Signs Temperature 98.7 F 11/05/17 17:54 Pulse Rate 65 11/05/17 17:54 Respiratory Rate 18 11/05/17 17:54 Blood Pressure 138/70 11/05/17 17:54 O2 Sat by Pulse Oximetry (%) 99 11/05/17 09:00 Constitutional: Yes: Calm Eyes: Yes: Conjunctiva Clear HENT: Yes: Atraumatic Cardiovascular: Yes: S1, S2 Respiratory: Yes: CTA Bilaterally Gastrointestinal: Yes: WNL Genitourinary: Yes: WNL Edema: No Neurological: Yes: Oriented Labs: CBC, BMP 11/05/17 05:35 11/05/17 05:35 Problem List - Problems (1) CKD (chronic kidney disease) Code(s): N18.9 - CHRONIC KIDNEY DISEASE, UNSPECIFIED (2) Anemia Code(s): D64.9 - ANEMIA, UNSPECIFIED (3) Essential hypertension Code(s): I10 - ESSENTIAL (PRIMARY) HYPERTENSION (4) Substance induced mood disorder Code(s): F19.94 - OTH PSYCHOACTIVE SUBSTANCE USE, UNSP W MOOD DISORDER (5) Alcohol dependence Code(s): F10.20 - ALCOHOL DEPENDENCE, UNCOMPLICATED Assessment/Plan Current Medications Generic Name Dose Route Start Last Admin Trade Name Freq PRN Reason Stop Dose Admin Amlodipine Besylate 5 mg 11/05/17 10:00 11/05/17 09:54 Norvasc - PO 5 mg DAILY [facility] Administration Atorvastatin Calcium 40 mg 11/01/17 22:00 11/04/17 23:11 Lipitor - PO 40 mg HS [facility] Administration Carvedilol 25 mg 11/01/17 22:00 11/05/17 09:15 Coreg - PO 25 mg BID [facility] Administration Clopidogrel Bisulfate 75 mg 11/01/17 22:00 11/04/17 23:11 Plavix - PO 75 mg HS [facility] Administration Cyclobenzaprine HCl 10 mg 11/01/17 15:26 11/03/17 06:50 Flexeril - PO 10 mg Q8H PRN Administration MUSCLE SPASMS Dorzolamide HCl 1 drop 11/01/17 22:00 11/05/17 09:15 Trusopt 2% OD 1 drop BID [facility] Administration Heparin Sodium (Porcine) 5,000 unit 11/01/17 22:00 11/05/17 13:12 Heparin - SQ 5,000 unit TID [facility] Administration Hydralazine HCl 100 mg 11/03/17 09:25 11/05/17 13:12 Apresoline - PO 100 mg TID [facility] Administration Insulin Aspart 1 vial 11/03/17 17:29 11/05/17 16:44 Novolog Vial Sliding Scale - SQ 2 unit ACHS [facility] Administration Protocol Insulin Detemir 5 units 11/03/17 22:00 11/04/17 23:15 Levemir Vial SQ 5 unit HS [facility] Administration Isosorbide Mononitrate 30 mg 11/02/17 10:00 11/05/17 09:15 Imdur - PO 30 mg DAILY [facility] Administration Multivit/Folic Acid/Iron 1 tab 11/03/17 10:00 11/05/17 09:15 Vitamins (Sjr) - PO 1 tab DAILY [facility] Administration Thiamine HCl 100 mg 11/02/17 22:00 11/04/17 23:12 Vitamin B1 - PO 100 mg HS [facility] Administration Timolol Maleate 1 drop 11/01/17 22:00 11/05/17 09:15 Timoptic 0.5% OD 1 drop BID [facility] Administration Zolpidem Tartrate 10 mg 11/05/17 09:52 Ambien - PO HS PRN INSOMNIA Laboratory Tests 11/04/17 17:00 Protein/Creatinin Ratio 3.18 Impression 1. CKD with worsening creatinine 2. HTN 3. DM 4. mood disorder 5. HLD Plan - nephrotic range proteinuria - this can be explained by uncontroleld DM - will need renal workup - possible kidney biopsy as outpt if he agrees - pt says he will follow in office - will follow Dr Eden
--- NOTE | 2017-11-05 20:58 | PN ---
Physical Exam: SUBJECTIVE: Patient awaiting [facility] Placement OBJECTIVE: awaiting placement Started on Norvasc Monitor BP Vital Signs Period Temp Pulse Resp BP Sys/House Pulse Ox Last 24 Hr 98.1 F-98.7 F 58-65 18-20 135-175/62-86 98-99 Laboratory Results - last 24 hr 11/04/17 11/04/17 11/05/17 17:00 23:09 05:35 WBC RBC Hgb Hct MCV MCH MCHC RDW Plt Count MPV Neutrophils % Lymphocytes % Monocytes % Eosinophils % Basophils % Sodium Potassium Chloride Carbon Dioxide Anion Gap BUN Creatinine Creat Clearance w eGFR POC Glucometer 259 Random Glucose Hemoglobin A1c % 14.1 H Calcium Total Bilirubin AST ALT Alkaline Phosphatase Total Protein Albumin Protein/Creatinin Ratio 3.18 11/05/17 11/05/17 11/05/17 05:35 05:35 06:49 WBC 4.3 RBC 3.99 L Hgb 9.6 L Hct 29.1 L MCV 73.1 L MCH 24.1 L MCHC 33.0 RDW 14.4 Plt Count 243 MPV 8.2 Neutrophils % 52.1 Lymphocytes % 40.8 H D Monocytes % 5.1 Eosinophils % 1.7 Basophils % 0.3 Sodium 138 Potassium 4.3 Chloride 104 Carbon Dioxide 25 Anion Gap 9 BUN 30 H Creatinine 2.9 H Creat Clearance w eGFR 22.31 POC Glucometer 181 Random Glucose 183 H Hemoglobin A1c % Calcium 8.2 L Total Bilirubin 0.6 AST 12 L ALT 14 Alkaline Phosphatase 68 Total Protein 5.4 L Albumin 2.4 L Protein/Creatinin Ratio 11/05/17 11/05/17 11:10 16:42 WBC RBC Hgb Hct MCV MCH MCHC RDW Plt Count MPV Neutrophils % Lymphocytes % Monocytes % Eosinophils % Basophils % Sodium Potassium Chloride Carbon Dioxide Anion Gap BUN Creatinine Creat Clearance w eGFR POC Glucometer 324 186 Random Glucose Hemoglobin A1c % Calcium Total Bilirubin AST ALT Alkaline Phosphatase Total Protein Albumin Protein/Creatinin Ratio Active Medications Generic Name Dose Route Start Last Admin Trade Name Freq PRN Reason Stop Dose Admin Amlodipine Besylate 5 mg 11/05/17 10:00 11/05/17 09:54 Norvasc - PO 5 mg DAILY [facility] Administration Atorvastatin Calcium 40 mg 11/01/17 22:00 11/04/17 23:11 Lipitor - PO 40 mg HS [facility] Administration Carvedilol 25 mg 11/01/17 22:00 11/05/17 09:15 Coreg - PO 25 mg BID [facility] Administration Clopidogrel Bisulfate 75 mg 11/01/17 22:00 11/04/17 23:11 Plavix - PO 75 mg HS [facility] Administration Cyclobenzaprine HCl 10 mg 11/01/17 15:26 11/03/17 06:50 Flexeril - PO 10 mg Q8H PRN Administration MUSCLE SPASMS Dorzolamide HCl 1 drop 11/01/17 22:00 11/05/17 09:15 Trusopt 2% OD 1 drop BID [facility] Administration Heparin Sodium (Porcine) 5,000 unit 11/01/17 22:00 11/05/17 13:12 Heparin - SQ 5,000 unit TID [facility] Administration Hydralazine HCl 100 mg 11/03/17 09:25 11/05/17 13:12 Apresoline - PO 100 mg TID [facility] Administration Insulin Aspart 1 vial 11/03/17 17:29 11/05/17 16:44 Novolog Vial Sliding Scale - SQ 2 unit ACHS [facility] Administration Protocol Insulin Detemir 5 units 11/03/17 22:00 11/04/17 23:15 Levemir Vial SQ 5 unit HS [facility] Administration Isosorbide Mononitrate 30 mg 11/02/17 10:00 11/05/17 09:15 Imdur - PO 30 mg DAILY [facility] Administration Multivit/Folic Acid/Iron 1 tab 11/03/17 10:00 11/05/17 09:15 Vitamins (Sjr) - PO 1 tab DAILY [facility] Administration Thiamine HCl 100 mg 11/02/17 22:00 11/04/17 23:12 Vitamin B1 - PO 100 mg HS [facility] Administration Timolol Maleate 1 drop 11/01/17 22:00 11/05/17 09:15 Timoptic 0.5% OD 1 drop BID [facility] Administration Zolpidem Tartrate 10 mg 11/05/17 09:52 Ambien - PO HS PRN INSOMNIA ASSESSMENT/PLAN: Pateint is a 62 year old male with a significant past medical history of diabetes, hypertension, polysubstance abuse, CAD, hyperlipidemia and CKD. He presented from [facility] with elevated BP and hyperglycemia. At [facility] he was seeking treatment for pcp dependence and was noted to have a BP of 214/117 and a blood sugar of 597 and sent to [facility] for further management. Hyperglycemia, controlled BGMs Hmga1c 14.1 Novolog, Levemir 5 units Hypertension, controlled On Hydralazine 100mg TID Isosorbide 30mg daily Coreg 25mg BID Norvasc 5mg daily
[2017-11-05] MEDS: CLOPIDOGREL BISULFATE 75 MG TABLET (FP) PO SCH (21:44)
[2017-11-05] MEDS: ATORVASTATIN CA 40 MG TABLET (FP) PO SCH (21:44)
[2017-11-05] MEDS: THIAMINE HCL 100 MG TABLET (FP) PO SCH (21:44)
[2017-11-05] MEDS: INSULIN DETEMIR 100 UNITS/ML MDV SQ SCH (21:45)
[2017-11-06] MEDS: INSULIN SLIDING SCALE (NOVOLOG) 1 VIAL SQ SCH ×4 (06:08→23:35)
[2017-11-06] MEDS: hydrALAZINE HCL 50 MG TABLET (FP) PO SCH ×3 (06:08→23:37)
[2017-11-06] MEDS: HEPARIN NA (PORCINE) 5,000 UNITS/ML 1ML VIAL SQ SCH ×3 (06:08→23:37)
[2017-11-06] MEDS: ISOSORBIDE MONONITRATE 30 MG TAB.SR.24H (FP) PO SCH (10:33)
[2017-11-06] MEDS: PRENATAL VITAMINS W/ FOLIC ACID TABLET (FP) PO SCH (10:33)
[2017-11-06] MEDS: CARVEDILOL 25 MG TABLET (FP) PO SCH ×2 (10:33→23:37)
[2017-11-06] MEDS: amLODIPine BESYLATE 5 MG TABLET (FP) PO SCH (10:34)
[2017-11-06] MEDS ORDERED: INSULIN (NOVOLOG) ASPART 100 UNITS/ML 10ML VIAL ONE ×2 (11:04→23:17)
[2017-11-06] MEDS: DORZOLAMIDE 2% HCL OPHTHALMIC SOLUTION 10 ML BOTTLE OD SCH ×2 (11:14→23:36)
[2017-11-06] MEDS: TIMOLOL 0.5% OPHTHALMIC SOL 5 ML BOTTLE OD SCH ×2 (11:14→23:36)
--- NOTE | 2017-11-06 12:53 | PN ---
Progress Note (short form) - Note Progress Note: s: no cp sob palps dizzy o: Current Medications Amlodipine Besylate (Norvasc -) 5 mg PO DAILY [facility] Last Admin: 11/06/17 10:34 Dose: 5 mg Atorvastatin Calcium (Lipitor -) 40 mg PO HS [facility] Last Admin: 11/05/17 21:44 Dose: 40 mg Carvedilol (Coreg -) 25 mg PO BID [facility] Last Admin: 11/06/17 10:33 Dose: 25 mg Clopidogrel Bisulfate (Plavix -) 75 mg PO HS [facility] Last Admin: 11/05/17 21:44 Dose: 75 mg Cyclobenzaprine HCl (Flexeril -) 10 mg PO Q8H PRN PRN Reason: MUSCLE SPASMS Last Admin: 11/03/17 06:50 Dose: 10 mg Dorzolamide HCl (Trusopt 2%) 1 drop OD BID [facility] Last Admin: 11/06/17 11:14 Dose: 1 drop Heparin Sodium (Porcine) (Heparin -) 5,000 unit SQ TID [facility] Last Admin: 11/06/17 06:08 Dose: 5,000 unit Hydralazine HCl (Apresoline -) 100 mg PO TID [facility] Last Admin: 11/06/17 06:08 Dose: 100 mg Insulin Aspart (Novolog Vial Sliding Scale -) 1 vial SQ [facility] PRN Reason: Protocol Last Admin: 11/06/17 11:18 Dose: 8 units Insulin Detemir (Levemir Vial) 5 units SQ HS [facility] Last Admin: 11/05/17 21:45 Dose: 5 unit Isosorbide Mononitrate (Imdur -) 30 mg PO DAILY [facility] Last Admin: 11/06/17 10:33 Dose: 30 mg Multivit/Folic Acid/Iron ( Vitamins (Sjr) -) 1 tab PO DAILY [facility] Last Admin: 11/06/17 10:33 Dose: 1 tab Thiamine HCl (Vitamin B1 -) 100 mg PO [facility] Last Admin: 11/05/17 21:44 Dose: 100 mg Timolol Maleate (Timoptic 0.5%) 1 drop OD BID [facility] Last Admin: 11/06/17 11:14 Dose: 1 drop Zolpidem Tartrate (Ambien -) 10 mg PO HS PRN PRN Reason: INSOMNIA Vital Signs - 24 hr 11/05/17 11/05/1711/05/18 14:51 17:54 21:00 Temperature 98.5 F 98.7 F Pulse Rate 65 65 Respiratory 20 18 Rate Blood Pressure 135/62 138/70 O2 Sat by Pulse 95 Oximetry (%) 11/05/17 11/06/17 11/06/17 22:00 01:42 05:50 Temperature 98.3 F 98.4 F 98.5 F Pulse Rate 69 56 L 59 L Respiratory 15 18 20 Rate Blood Pressure 178/79 134/61 149/73 O2 Sat by Pulse Oximetry (%) 11/06/17 09:00 Temperature 98 F Pulse Rate 64 Respiratory 20 Rate Blood Pressure 160/68 O2 Sat by Pulse 95 Oximetry (%) Intake & Output 11/04/17 11/05/17 11/06/17 11/07/17 07:59 07:59 07:59 07:59 Intake Total 1180 700 700 Balance 1180 700 700 nad no jvd rrr s1s2 no mrg cta bl nl eff aaox3 no le e/c/c abd nt nd pos bs no jaundice diaphoresis CBC, BMP 11/05/17 05:35 11/05/17 05:35 ecg: sr, nl intervals, lat twis, no st changes, no sig change from old ecg echo 10/2017: mod lvh, nl lvef, nl rv, mild mr, mild tr, nl rvsp a/p: 62 m hx htn, hld, dm, here with htn. htn: -cont current meds, bp improved - added norvasc 5 on 11/05 for better control. --> 11/06 isolated sbp elevations but bp control overall improved. If still with sbp elevations this evening, will uptitrate norvasc to 10 mg/day -echo here shows mod lvh, likely from untreated htn hld: -cont statin renal insufficiency - renal following. dm: stable, per pmd
--- NOTE | 2017-11-06 18:14 | PN ---
Physical Exam: SUBJECTIVE: Patient seen and examined at the bedside. OBJECTIVE: Vital Signs Period Temp Pulse Resp BP Sys/House Pulse Ox Last 24 Hr 98 F-98.8 F 56-71 15-20 134-178/61-79 95-95 GENERAL: The patient is awake, alert, and fully oriented, in no acute distress. HEAD: Normal with no signs of trauma. EYES: PERRL, extraocular movements intact, sclera anicteric, conjunctiva clear. No ptosis. ENT: Ears normal, nares patent, oropharynx clear without exudates, moist mucous membranes. NECK: Trachea midline, full range of motion, supple. HEART: Regular rate and rhythm, S1, S2 without murmur, rub or gallop. ABDOMEN: Soft, nontender, nondistended, normoactive bowel sounds, no guarding, no rebound, no hepatosplenomegaly, no masses. EXTREMITIES: Left upper arm on soft cast NEUROLOGICAL: Normal speech, gait not observed. PSYCH: Normal mood, normal affect. SKIN: Warm, dry, normal turgor, no rashes or lesions noted Laboratory Results - last 24 hr 11/05/17 11/06/17 11/06/17 21:42 06:07 11:17 POC Glucometer 283 183 263 11/06/17 16:59 POC Glucometer 227 Active Medications Generic Name Dose Route Start Last Admin Trade Name Freq PRN Reason Stop Dose Admin Amlodipine Besylate 5 mg 11/05/17 10:00 11/06/17 10:34 Norvasc - PO 5 mg DAILY [facility] Administration Atorvastatin Calcium 40 mg 11/01/17 22:00 11/05/17 21:44 Lipitor - PO 40 mg HS [facility] Administration Carvedilol 25 mg 11/01/17 22:00 11/06/17 10:33 Coreg - PO 25 mg BID [facility] Administration Clopidogrel Bisulfate 75 mg 11/01/17 22:00 11/05/17 21:44 Plavix - PO 75 mg HS [facility] Administration Cyclobenzaprine HCl 10 mg 11/01/17 15:26 11/03/17 06:50 Flexeril - PO 10 mg Q8H PRN Administration MUSCLE SPASMS Dorzolamide HCl 1 drop 11/01/17 22:00 11/06/17 11:14 Trusopt 2% OD 1 drop BID [facility] Administration Heparin Sodium (Porcine) 5,000 unit 11/01/17 22:00 11/06/17 14:45 Heparin - SQ 5,000 unit TID [facility] Administration Hydralazine HCl 100 mg 11/03/17 09:25 11/06/17 14:45 Apresoline - PO 100 mg TID [facility] Administration Insulin Aspart 1 vial 11/06/17 09:43 11/06/17 17:31 Novolog Vial Sliding Scale - SQ 6 units ACHS [facility] Administration Protocol Insulin Detemir 5 units 11/03/17 22:00 11/05/17 21:45 Levemir Vial SQ 5 unit HS [facility] Administration Isosorbide Mononitrate 30 mg 11/02/17 10:00 11/06/17 10:33 Imdur - PO 30 mg DAILY [facility] Administration Multivit/Folic Acid/Iron 1 tab 11/03/17 10:00 11/06/17 10:33 Vitamins (Sjr) - PO 1 tab DAILY [facility] Administration Thiamine HCl 100 mg 11/02/17 22:00 11/05/17 21:44 Vitamin B1 - PO 100 mg HS [facility] Administration Timolol Maleate 1 drop 11/01/17 22:00 11/06/17 11:14 Timoptic 0.5% OD 1 drop BID [facility] Administration Zolpidem Tartrate 10 mg 11/05/17 09:52 Ambien - PO HS PRN INSOMNIA ASSESSMENT/PLAN: Patient is a 62 year old male with a significant past medical history of diabetes, hypertension, polysubstance abuse, CAD, hyperlipidemia and CKD. He presented from [facility] with elevated BP and hyperglycemia. At [facility] he was seeking treatment for pcp dependence and was noted to have a BP of 214/117 and a blood sugar of 597 and sent to [facility] for further management. Of note patient is on a left arm immobilizer and sling. Endocrine: Hyperglycemia, controlled BGMs, Levemir @ HS Hmga1c 14.1 Outpatient monitoring Cardiology: Hypertension, controlled/improved On Hydralazine 100mg TID Isosorbide 30mg daily Coreg 25mg BID Norvasc 5mg daily Monitor BP Hyperlipidemia, chronic On Lipitor Renal CKD Patient to follow up outpatient with Dr Eden May need kidney biopsy Psyche PCP abuse To continue rehab @ [facility] Dr Sawant following F.E.N. Fluids: tolerating PO Electrolytes: monitor Nutrition: low sodium Prophylaxis: DVT: ambulation, heparin tid GI: deferred Disposition: Discharge to [facility] likely tomorrow pending bed availability. full code. Visit type - Emergency Visit Emergency Visit: Yes ED Registration Date: 11/01/17 Care time: The patient presented to the Emergency Department on the above date and was hospitalized for further evaluation of their emergent condition. - New Patient This patient is new to me today: No - Critical Care Critical Care patient: No - Discharge Referral Referred to [facility] Med P.C.: No
[2017-11-06] MEDS: INSULIN DETEMIR 100 UNITS/ML MDV SQ SCH (23:35)
[2017-11-06] MEDS: THIAMINE HCL 100 MG TABLET (FP) PO SCH (23:36)
[2017-11-06] MEDS: ATORVASTATIN CA 40 MG TABLET (FP) PO SCH (23:37)
[2017-11-06] MEDS: CLOPIDOGREL BISULFATE 75 MG TABLET (FP) PO SCH (23:37)
[2017-11-07] MEDS: HEPARIN NA (PORCINE) 5,000 UNITS/ML 1ML VIAL SQ SCH (06:52)
[2017-11-07] MEDS: hydrALAZINE HCL 50 MG TABLET (FP) PO SCH (06:52)
[2017-11-07] MEDS: INSULIN SLIDING SCALE (NOVOLOG) 1 VIAL SQ SCH ×2 (06:53→11:53)
[2017-11-07] MEDS ORDERED: INSULIN (NOVOLOG) ASPART 100 UNITS/ML 10ML VIAL ONE (07:01)
[2017-11-07] MEDS ORDERED: PT OWN MED DRAWER 7, Y5N ONE (09:47)
[2017-11-07] MEDS: CARVEDILOL 25 MG TABLET (FP) PO SCH (09:51)
[2017-11-07] MEDS: ISOSORBIDE MONONITRATE 30 MG TAB.SR.24H (FP) PO SCH (09:51)
[2017-11-07] MEDS: TIMOLOL 0.5% OPHTHALMIC SOL 5 ML BOTTLE OD SCH (09:52)
[2017-11-07] MEDS: DORZOLAMIDE 2% HCL OPHTHALMIC SOLUTION 10 ML BOTTLE OD SCH (09:52)
[2017-11-07] MEDS: PRENATAL VITAMINS W/ FOLIC ACID TABLET (FP) PO SCH (09:52)
[2017-11-07] MEDS: amLODIPine BESYLATE 5 MG TABLET (FP) PO SCH (09:52)
--- NOTE | 2017-11-07 10:37 | PN ---
Progress Note (short form) - Note Progress Note: s: no cp sob palps dizzy o: Vital Signs Period Temp Pulse Resp BP Sys/House Pulse Ox Last 24 Hr 98.1 F-98.9 F 61-71 18-20 129-153/60-71 97 nad no jvd rrr s1s2 no mrg cta bl nl eff aaox3 no le e/c/c abd nt nd pos bs no jaundice diaphoresis Current Medications Generic Name Dose Route Start Last Admin Trade Name Freq PRN Reason Stop Dose Admin Amlodipine Besylate 5 mg 11/05/17 10:00 11/07/17 09:52 Norvasc - PO 5 mg DAILY [facility] Administration Atorvastatin Calcium 40 mg 11/01/17 22:00 11/06/17 23:37 Lipitor - PO 40 mg HS [facility] Administration Carvedilol 25 mg 11/01/17 22:00 11/07/17 09:51 Coreg - PO 25 mg BID [facility] Administration Clopidogrel Bisulfate 75 mg 11/01/17 22:00 11/06/17 23:37 Plavix - PO 75 mg HS [facility] Administration Cyclobenzaprine HCl 10 mg 11/01/17 15:26 11/03/17 06:50 Flexeril - PO 10 mg Q8H PRN Administration MUSCLE SPASMS Dorzolamide HCl 1 drop 11/01/17 22:00 11/07/17 09:52 Trusopt 2% OD 1 drop BID [facility] Administration Heparin Sodium (Porcine) 5,000 unit 11/01/17 22:00 11/07/17 06:52 Heparin - SQ 5,000 unit TID [facility] Administration Hydralazine HCl 100 mg 11/03/17 09:25 11/07/17 06:52 Apresoline - PO 100 mg TID [facility] Administration Insulin Aspart 1 vial 11/06/17 09:43 11/07/17 06:53 Novolog Vial Sliding Scale - SQ 4 units ACHS [facility] Administration Protocol Insulin Detemir 5 units 11/03/17 22:00 11/06/17 23:35 Levemir Vial SQ 5 unit HS [facility] Administration Isosorbide Mononitrate 30 mg 11/02/17 10:00 11/07/17 09:51 Imdur - PO 30 mg DAILY [facility] Administration Multivit/Folic Acid/Iron 1 tab 11/03/17 10:00 11/07/17 09:52 Vitamins (Sjr) - PO 1 tab DAILY [facility] Administration Thiamine HCl 100 mg 11/02/17 22:00 11/06/17 23:36 Vitamin B1 - PO 100 mg HS [facility] Administration Timolol Maleate 1 drop 11/01/17 22:00 11/07/17 09:52 Timoptic 0.5% OD 1 drop BID [facility] Administration Zolpidem Tartrate 10 mg 11/05/17 09:52 Ambien - PO HS PRN INSOMNIA CBC, BMP 11/05/17 05:35 11/05/17 05:35 ecg: sr, nl intervals, lat twis, no st changes, no sig change from old ecg echo 10/2017: mod lvh, nl lvef, nl rv, mild mr, mild tr, nl rvsp a/p: 62 m hx htn, hld, dm, here with htn. htn: -cont current meds, bp improved -echo here shows mod lvh, likely from untreated htn hld: -cont statin dm: stable, per pmd
--- NOTE | 2017-11-07 10:46 | DS ---
Physical Examination Vital Signs: Vital Signs Temperature 98.1 F 11/07/17 05:52 Pulse Rate 61 11/07/17 05:52 Respiratory Rate 20 11/07/17 05:52 Blood Pressure 148/71 11/07/17 05:52 O2 Sat by Pulse Oximetry (%) 97 11/06/17 21:00 Labs: CBC, BMP 11/05/17 05:35 11/05/17 05:35 Discharge Summary Reason For Visit: ESSENTIAL HYPERTENSION Current Active Problems JOANNA (acute kidney injury) (Acute) Anemia (Acute) CKD (chronic kidney disease) (Acute) Essential hypertension (Chronic) Condition: Improved - Instructions Diet, Activity, Other Instructions: You are being transferred to inpatient rehab. Please return to the ED with new, persistent, or worsening symptoms. Please follow-up with providers as indicated. Referrals: Umer Davis MD [Staff Physician] - 1 Week Porfirio Hendrix MD [Staff Physician] - 1 Week Reny Eden MD [Staff Physician] - 1 Week (Please follow-up with nephrology within 1 week for further management of your chronic kidney disease) Disposition: HOME - Home Medications Comprehensive Discharge Medication List: Ambulatory Orders Atorvastatin Ca [Lipitor] 40 mg PO HS 11/01/17 Bimatoprost [Lumigan] 1 drop OD DAILY 11/01/17 Carvedilol [Coreg -] 25 mg PO BID 11/01/17 Clopidogrel Bisulfate [Plavix -] 75 mg PO HS 11/01/17 Cyclobenzaprine HCl [Flexeril -] 10 mg PO TID 11/01/17 Dorzolamide HCl/Timolol Maleat [Cosopt Eye Drops] 10 ml OD BID 11/01/17 Isosorbide Mononitrate [Imdur -] 30 mg PO DAILY 11/01/17 Latanoprost 0.005% Eye Drops [Xalatan 0.005% Eye Drops -] 1 drop OD HS 11/01/17 Amlodipine Besylate [Norvasc -] 5 mg PO DAILY tablet 11/07/17 Dorzolamide HCl [Trusopt 2% -] 1 drop OD BID drops 11/07/17 Insulin (Levemir) [Levemir Vial] 5 units SQ HS ml 11/07/17 Insulin Sliding Scale [Novolog Vial Sliding Scale -] 1 vial SQ ACHS units 11/07 Vitamins (Sjr) - 1 tab PO DAILY tablet 11/07/17 Thiamine HCl [Vitamin B1 -] 100 mg PO HS tablet 11/07/17 Timolol 0.5% [Timoptic 0.5%] 1 drop OD BID drops 11/07/17 hydrALAZINE HCL [Apresoline -] 100 mg PO TID tablet 11/07/17 - Discharge Referral Referred to [facility] No
[2017-11-07 11:00] VITALS: BP 131/71; PULSE 69; TEMP 98.3
== END 2017-11-07 13:00 | disposition other institution (70) | DRG 638 ==
LOC: JER 11:45 → JERBED 15:18 → J7W 19:20
PROVIDERS: ADMIT Internal Medicine; ATTEND Registered Nurse
DX: E11.65 Type 2 diabetes mellitus with hyperglycemia (principal); I16.1 Hypertensive emergency; N17.9 Acute kidney failure, unspecified; F14.20 Cocaine dependence, uncomplicated; I12.9 Hypertensive chronic kidney disease with stage 1 through stage 4 chronic kidney disease, or unspecified chronic kidney disease; E11.22 Type 2 diabetes mellitus with diabetic chronic kidney disease; N18.9 Chronic kidney disease, unspecified; F10.20 Alcohol dependence, uncomplicated; D64.9 Anemia, unspecified; E78.5 Hyperlipidemia, unspecified; F17.210 Nicotine dependence, cigarettes, uncomplicated; I44.4 Left anterior fascicular block; F16.10 Hallucinogen abuse, uncomplicated; F19.14 Other psychoactive substance abuse with psychoactive substance-induced mood disorder; Z91.14 Patient's other noncompliance with medication regimen
CPT/HCPCS: 36415; 71101-TC-FY; 76775-TC; 80048; 80053; 80307; 81003; 81015; 82009; 82436; 82570; 82962; 83036; 83735; 84133; 84156; 84300; 84540; 85025; 85027; 93005; 93010; 93306-TC; 99281-25; J1644

== ENCOUNTER 2017-11-07 13:31 | Inpatient (IN) | payer OTHER ==
[2017-11-07 16:31] VITALS: BMI 26.6
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
[2017-11-07] MEDS ORDERED: guaiFENesin/D-METHORPHAN HB 10 ML UNIT-DOSE CUPS PO PRN (17:00)
[2017-11-07] MEDS ORDERED: P-EPHED 60MG/TRIPROLIDI 2.5MG TABLET PO PRN (17:00)
[2017-11-07] MEDS ORDERED: MAGNESIUM CITRATE 300 ML BOTTLE PO PRN (17:00)
[2017-11-07] MEDS ORDERED: NICOTINE POLACRILEX 2 MG GUM BC PRN (17:00)
[2017-11-07] MEDS ORDERED: MAG HYDROX/AL HYDROX/SIMETH 30 ML UNIT-DOSE CUP PO PRN (17:00)
[2017-11-07] MEDS ORDERED: MENTHOL/PHENOL 1 EACH UD MM PRN (17:00)
[2017-11-07] MEDS ORDERED: MAGNESIUM HYDROX 2400MG/30ML ORAL SUSPENSION 30 ML CUP PO PRN (17:00)
[2017-11-07] MEDS ORDERED: IBUPROFEN 400 MG TABLET (FP) PO PRN (17:00)
[2017-11-07] MEDS ORDERED: hydrOXYzine PAMOATE 50 MG CAPSULE (FP) PO PRN (17:00)
[2017-11-07] MEDS ORDERED: LOPERAMIDE HCL 2 MG CAPSULE PO PRN (17:00)
[2017-11-07] MEDS ORDERED: PATIENT'S OWN MEDICATION (NON-FORMULARY) (Dorzolamide Hcl/Timolol Maleat [Cosopt Eye Drops OD SCH (22:00)
[2017-11-07] MEDS: NICOTINE 7 MG/24 HOURS TOPICAL PATCH TD SCH (22:32)
[2017-11-07] MEDS ORDERED: INSULIN (NOVOLOG) ASPART 100 UNITS/ML 10ML VIAL ONE (22:46)
[2017-11-07] MEDS: INSULIN (NOVOLOG) ASPART 100 UNITS/ML 10ML VIAL SQ SCH (22:47)
[2017-11-07] MEDS: THIAMINE HCL 100 MG TABLET (FP) PO SCH (22:48)
[2017-11-07] MEDS: hydrALAZINE HCL 50 MG TABLET (FP) PO SCH (22:48)
[2017-11-07] MEDS: TIMOLOL 0.5% OPHTHALMIC SOL 5 ML BOTTLE OD SCH (22:48)
[2017-11-07] MEDS: ATORVASTATIN CA 40 MG TABLET (FP) PO SCH (22:48)
[2017-11-07] MEDS: CLOPIDOGREL BISULFATE 75 MG TABLET (FP) PO SCH (22:48)
[2017-11-07] MEDS: CARVEDILOL 25 MG TABLET (FP) PO SCH (22:48)
[2017-11-07] MEDS: DORZOLAMIDE 2% HCL OPHTHALMIC SOLUTION 10 ML BOTTLE OD SCH (22:49)
[2017-11-07] MEDS: LATANOPROST 0.005% OPHTH SOLN 2.5ML BOTTLE OD SCH (22:49)
[2017-11-08] MEDS ORDERED: INSULIN (NOVOLOG) ASPART 100 UNITS/ML 10ML VIAL ONE ×4 (07:15→21:44)
[2017-11-08] MEDS: hydrALAZINE HCL 50 MG TABLET (FP) PO SCH ×3 (07:18→21:41)
[2017-11-08] MEDS: INSULIN (NOVOLOG) ASPART 100 UNITS/ML 10ML VIAL SQ SCH ×4 (07:19→21:44)
[2017-11-08] MEDS ORDERED: PATIENT'S OWN MEDICATION (NON-FORMULARY) (Bimatoprost [Lumigan] 1 DROP) OD SCH (10:00)
[2017-11-08 10:12] LABS: HEMATOCRIT 30.6 % (35.4-49); HEMOGLOBIN 9.7 GM/dL (11.7-16.9); MCH 23.3 pg (25.7-33.7); MCHC 31.8 g/dl (32.0-35.9); MEAN CELL VOLUME 73.2 fl (80-96); MEAN PLT VOLUME 8.3 fl (7.5-11.1); PLATELET COUNT 257 K/MM3 (134-434); RBC 4.18 M/mm3 (4.00-5.60); RDW 14.9 % (11.9-15.9); WHITE BLOOD COUNT 5.1 K/mm3 (4.0-10.0)
[2017-11-08 10:18] LABS: CHLORIDE 103 mmol/L (98-107); POTASSIUM 4.6 mmol/L (3.5-5.1); SODIUM 136 mmol/L (136-145)
[2017-11-08 10:37] LABS: ALBUMIN 2.8 g/dl (3.4-5.0); ALK PHOS 70 U/L (45-117); ANION GAP 8 (8-16); BILIRUBIN,TOTAL 0.7 mg/dL (0.2-1.0); BLOOD UREA NITROGEN 36 mg/dL (7-18); CALCIUM 8.1 mg/dL (8.5-10.1); CO2 25 mmol/L (21-32); GLUCOSE,RANDOM 211 mg/dL (74-106); SGOT/AST 16 U/L (15-37); SGPT/ALT 20 U/L (12-78)
[2017-11-08] MEDS: CARVEDILOL 25 MG TABLET (FP) PO SCH ×2 (10:41→21:41)
[2017-11-08] MEDS: ISOSORBIDE MONONITRATE 30 MG TAB.SR.24H (FP) PO SCH (10:42)
[2017-11-08] MEDS: amLODIPine BESYLATE 5 MG TABLET (FP) PO SCH (10:43)
[2017-11-08] MEDS: PRENATAL VITAMINS W/ FOLIC ACID TABLET (FP) PO SCH (10:43)
[2017-11-08] MEDS: NICOTINE 7 MG/24 HOURS TOPICAL PATCH TD SCH (11:04)
[2017-11-08] MEDS: TIMOLOL 0.5% OPHTHALMIC SOL 5 ML BOTTLE OD SCH ×2 (11:05→22:58)
[2017-11-08] MEDS: DORZOLAMIDE 2% HCL OPHTHALMIC SOLUTION 10 ML BOTTLE OD SCH ×2 (11:06→22:58)
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
--- NOTE | 2017-11-08 16:11 | EKG ---
Test Reason : Blood Pressure : / mmHG Vent. Rate : 072 BPM Atrial Rate : 072 BPM P-R Int : 182 ms QRS Dur : 110 ms QT Int : 420 ms P-R-T Axes : 072 -38 255 degrees QTc Int : 459 ms NORMAL SINUS RHYTHM POSSIBLE LEFT ATRIAL ENLARGEMENT LEFT AXIS DEVIATION INCOMPLETE RIGHT BUNDLE BRANCH BLOCK T WAVE ABNORMALITY, CONSIDER INFEROLATERAL ISCHEMIA ABNORMAL ECG WHEN COMPARED WITH ECG OF 01-NOV-2017 12:01, INCOMPLETE RIGHT BUNDLE BRANCH BLOCK IS NOW PRESENT Confirmed by SUSY JAVIER MD ([id number]) on 11/08/2017 4:10:51 PM Referred By: Confirmed By:SUSY JAVIER MD
[2017-11-08] MEDS: ATORVASTATIN CA 40 MG TABLET (FP) PO SCH (21:41)
[2017-11-08] MEDS: CLOPIDOGREL BISULFATE 75 MG TABLET (FP) PO SCH (21:41)
[2017-11-08] MEDS: THIAMINE HCL 100 MG TABLET (FP) PO SCH (21:42)
[2017-11-08] MEDS: LATANOPROST 0.005% OPHTH SOLN 2.5ML BOTTLE OD SCH (22:58)
[2017-11-09] MEDS: hydrALAZINE HCL 50 MG TABLET (FP) PO SCH ×3 (06:21→21:24)
[2017-11-09] MEDS: ACETAMINOPHEN 325 MG TABLET (FP) PO PRN (06:26)
[2017-11-09] MEDS ORDERED: INSULIN (NOVOLOG) ASPART 100 UNITS/ML 10ML VIAL ONE ×4 (07:03→21:27)
[2017-11-09] MEDS: INSULIN (NOVOLOG) ASPART 100 UNITS/ML 10ML VIAL SQ SCH ×4 (07:08→21:23)
[2017-11-09] MEDS: PRENATAL VITAMINS W/ FOLIC ACID TABLET (FP) PO SCH (10:49)
[2017-11-09] MEDS: CARVEDILOL 25 MG TABLET (FP) PO SCH ×2 (10:49→21:24)
[2017-11-09] MEDS: ISOSORBIDE MONONITRATE 30 MG TAB.SR.24H (FP) PO SCH (10:49)
[2017-11-09] MEDS: TIMOLOL 0.5% OPHTHALMIC SOL 5 ML BOTTLE OD SCH ×2 (10:50→21:26)
[2017-11-09] MEDS: NICOTINE 7 MG/24 HOURS TOPICAL PATCH TD SCH (10:50)
[2017-11-09] MEDS: amLODIPine BESYLATE 5 MG TABLET (FP) PO SCH (10:50)
[2017-11-09] MEDS: DORZOLAMIDE 2% HCL OPHTHALMIC SOLUTION 10 ML BOTTLE OD SCH ×2 (10:51→21:26)
[2017-11-09] MEDS: ATORVASTATIN CA 40 MG TABLET (FP) PO SCH (21:24)
[2017-11-09] MEDS: CLOPIDOGREL BISULFATE 75 MG TABLET (FP) PO SCH (21:24)
[2017-11-09] MEDS: THIAMINE HCL 100 MG TABLET (FP) PO SCH (21:24)
[2017-11-09] MEDS: LATANOPROST 0.005% OPHTH SOLN 2.5ML BOTTLE OD SCH (21:26)
[2017-11-10] MEDS: hydrALAZINE HCL 50 MG TABLET (FP) PO SCH ×3 (06:12→21:28)
[2017-11-10] MEDS ORDERED: INSULIN (NOVOLOG) ASPART 100 UNITS/ML 10ML VIAL ONE ×4 (07:33→21:52)
[2017-11-10] MEDS: INSULIN (NOVOLOG) ASPART 100 UNITS/ML 10ML VIAL SQ SCH ×4 (07:34→21:30)
[2017-11-10] MEDS: amLODIPine BESYLATE 5 MG TABLET (FP) PO SCH (10:04)
[2017-11-10] MEDS: PRENATAL VITAMINS W/ FOLIC ACID TABLET (FP) PO SCH (10:04)
[2017-11-10] MEDS: NICOTINE 7 MG/24 HOURS TOPICAL PATCH TD SCH (10:04)
[2017-11-10] MEDS: CARVEDILOL 25 MG TABLET (FP) PO SCH ×2 (10:04→21:28)
[2017-11-10] MEDS: ISOSORBIDE MONONITRATE 30 MG TAB.SR.24H (FP) PO SCH (10:04)
[2017-11-10] MEDS: DORZOLAMIDE 2% HCL OPHTHALMIC SOLUTION 10 ML BOTTLE OD SCH ×2 (10:14→21:35)
[2017-11-10] MEDS: TIMOLOL 0.5% OPHTHALMIC SOL 5 ML BOTTLE OD SCH ×2 (10:14→21:35)
[2017-11-10] MEDS: ACETAMINOPHEN 325 MG TABLET (FP) PO PRN ×2 (14:38→21:29)
[2017-11-10] MEDS: THIAMINE HCL 100 MG TABLET (FP) PO SCH (21:28)
[2017-11-10] MEDS: CLOPIDOGREL BISULFATE 75 MG TABLET (FP) PO SCH (21:28)
[2017-11-10] MEDS: ATORVASTATIN CA 40 MG TABLET (FP) PO SCH (21:28)
[2017-11-10] MEDS: LATANOPROST 0.005% OPHTH SOLN 2.5ML BOTTLE OD SCH (21:35)
[2017-11-11] MEDS: hydrALAZINE HCL 50 MG TABLET (FP) PO SCH ×3 (06:17→21:25)
[2017-11-11] MEDS: INSULIN (NOVOLOG) ASPART 100 UNITS/ML 10ML VIAL SQ SCH ×4 (07:31→21:28)
[2017-11-11] MEDS ORDERED: INSULIN (NOVOLOG) ASPART 100 UNITS/ML 10ML VIAL ONE ×4 (07:34→21:48)
[2017-11-11] MEDS: ISOSORBIDE MONONITRATE 30 MG TAB.SR.24H (FP) PO SCH (10:43)
[2017-11-11] MEDS: NICOTINE 7 MG/24 HOURS TOPICAL PATCH TD SCH (10:43)
[2017-11-11] MEDS: PRENATAL VITAMINS W/ FOLIC ACID TABLET (FP) PO SCH (10:43)
[2017-11-11] MEDS: amLODIPine BESYLATE 5 MG TABLET (FP) PO SCH (10:43)
[2017-11-11] MEDS: CARVEDILOL 25 MG TABLET (FP) PO SCH ×2 (10:43→21:25)
[2017-11-11] MEDS: DORZOLAMIDE 2% HCL OPHTHALMIC SOLUTION 10 ML BOTTLE OD SCH ×2 (10:44→21:29)
[2017-11-11] MEDS: TIMOLOL 0.5% OPHTHALMIC SOL 5 ML BOTTLE OD SCH ×2 (10:44→21:29)
[2017-11-11] MEDS: ACETAMINOPHEN 325 MG TABLET (FP) PO PRN ×2 (10:45→15:26)
[2017-11-11] MEDS: CLOPIDOGREL BISULFATE 75 MG TABLET (FP) PO SCH (21:25)
[2017-11-11] MEDS: ATORVASTATIN CA 40 MG TABLET (FP) PO SCH (21:26)
[2017-11-11] MEDS: THIAMINE HCL 100 MG TABLET (FP) PO SCH (21:26)
[2017-11-11] MEDS: INSULIN DETEMIR 100 UNITS/ML MDV SQ SCH (21:27)
[2017-11-11] MEDS: LATANOPROST 0.005% OPHTH SOLN 2.5ML BOTTLE OD SCH (21:29)
[2017-11-12] MEDS: hydrALAZINE HCL 50 MG TABLET (FP) PO SCH ×3 (06:12→21:29)
[2017-11-12] MEDS: INSULIN (NOVOLOG) ASPART 100 UNITS/ML 10ML VIAL SQ SCH ×4 (06:55→21:32)
[2017-11-12] MEDS ORDERED: INSULIN (NOVOLOG) ASPART 100 UNITS/ML 10ML VIAL ONE ×3 (07:02→21:59)
[2017-11-12] MEDS: PRENATAL VITAMINS W/ FOLIC ACID TABLET (FP) PO SCH (10:14)
[2017-11-12] MEDS: NICOTINE 7 MG/24 HOURS TOPICAL PATCH TD SCH (10:14)
[2017-11-12] MEDS: amLODIPine BESYLATE 5 MG TABLET (FP) PO SCH (10:14)
[2017-11-12] MEDS: CARVEDILOL 25 MG TABLET (FP) PO SCH ×2 (10:14→21:28)
[2017-11-12] MEDS: ISOSORBIDE MONONITRATE 30 MG TAB.SR.24H (FP) PO SCH (10:14)
[2017-11-12] MEDS: TIMOLOL 0.5% OPHTHALMIC SOL 5 ML BOTTLE OD SCH ×2 (10:15→21:33)
[2017-11-12] MEDS: DORZOLAMIDE 2% HCL OPHTHALMIC SOLUTION 10 ML BOTTLE OD SCH ×2 (10:15→21:33)
--- NOTE | 2017-11-12 14:26 | PN ---
S Progress Note (SOAP) Subjective: c/o pain on the left rib area and left arm which is currently on sling Objective: 11/12/17 14:21 Vital Signs Temperature 98.0 F 11/12/17 07:01 Pulse Rate 67 11/12/17 10:00 Respiratory Rate 18 11/12/17 10:00 Blood Pressure 153/70 11/12/17 10:00 O2 Sat by Pulse Oximetry (%) Laboratory Last Values WBC 5.1 K/mm3 (4.0-10.0) 11/08/17 07:00 RBC 4.18 M/mm3 (4.00-5.60) 11/08/17 07:00 Hgb 9.7 GM/dL (11.7-16.9) L 11/08/17 07:00 Hct 30.6 % (35.4-49) L 11/08/17 07:00 MCV 73.2 fl (80-96) L 11/08/17 07:00 MCH 23.3 pg (25.7-33.7) L 11/08/17 07:00 MCHC 31.8 g/dl (32.0-35.9) L 11/08/17 07:00 RDW 14.9 % (11.9-15.9) 11/08/17 07:00 Plt Count 257 K/MM3 (134-434) 11/08/17 07:00 MPV 8.3 fl (7.5-11.1) 11/08/17 07:00 Sodium 136 mmol/L (136-145) 11/08/17 07:00 Potassium 4.6 mmol/L (3.5-5.1) 11/08/17 07:00 Chloride 103 mmol/L (98-107) 11/08/17 07:00 Carbon Dioxide 25 mmol/L (21-32) 11/08/17 07:00 Anion Gap 8 (8-16) 11/08/17 07:00 BUN 36 mg/dL (7-18) H 11/08/17 07:00 Creatinine 3.0 mg/dL (0.7-1.3) H 11/08/17 07:00 Creat Clearance w eGFR 21.45 (>60) 11/08/17 07:00 POC Glucometer 122 UNITS (80-120) 11/12/17 06:12 Random Glucose 211 mg/dL (74-106) H 11/08/17 07:00 Calcium 8.1 mg/dL (8.5-10.1) L 11/08/17 07:00 Total Bilirubin 0.7 mg/dL (0.2-1.0) 11/08/17 07:00 AST 16 U/L (15-37) D 11/08/17 07:00 ALT 20 U/L (12-78) D 11/08/17 07:00 Alkaline Phosphatase 70 U/L (45-117) 11/08/17 07:00 Total Protein 6.0 g/dl (6.4-8.2) L 11/08/17 07:00 Albumin 2.8 g/dl (3.4-5.0) L 11/08/17 07:00 RPR Titer Nonreactive (NONREACTIVE) 11/08/17 07:00 Labs noted GENERAL APPEARANCE: Well developed, well nourished, alert and cooperative, and appears to be in no acute distress MUSKULOSKELETAL: . No joint erythema, Normal gait, ambulating + cast and sling on left arm and + for pain ABDOMEN: Positive bowel sounds. Soft, nondistended. No guarding or rebound. No masses. Pain on the LUQ along the rig area CARDIAC: Normal S1 and S2. No S3, S4 or murmurs. Rhythm is regular. LUNGS: Clear no adventitious breath sounds Assessment: 11/12/17 14:25 acute musculoskeletal pain Plan: Increase fluids Continue tylenol Lidocaine patch PRN
[2017-11-12] MEDS: LIDOCAINE 5% TOPICAL PATCH TP SCH ×2 (15:26→16:44)
[2017-11-12] MEDS: THIAMINE HCL 100 MG TABLET (FP) PO SCH (21:28)
[2017-11-12] MEDS: ATORVASTATIN CA 40 MG TABLET (FP) PO SCH (21:28)
[2017-11-12] MEDS: CLOPIDOGREL BISULFATE 75 MG TABLET (FP) PO SCH (21:29)
[2017-11-12] MEDS: ACETAMINOPHEN 325 MG TABLET (FP) PO PRN (21:30)
[2017-11-12] MEDS: INSULIN DETEMIR 100 UNITS/ML MDV SQ SCH (21:31)
[2017-11-12] MEDS: LATANOPROST 0.005% OPHTH SOLN 2.5ML BOTTLE OD SCH (21:33)
[2017-11-12] MEDS ORDERED: LIDOCAINE PATCH REMOVAL MC SCH (22:00)
[2017-11-13] MEDS: INSULIN (NOVOLOG) ASPART 100 UNITS/ML 10ML VIAL SQ SCH (06:22)
[2017-11-13] MEDS: hydrALAZINE HCL 50 MG TABLET (FP) PO SCH (06:22)
[2017-11-13] MEDS ORDERED: INSULIN (NOVOLOG) ASPART 100 UNITS/ML 10ML VIAL ONE (06:49)
[2017-11-13 07:05] VITALS: TEMP 97.8
[2017-11-13] MEDS: NICOTINE 7 MG/24 HOURS TOPICAL PATCH TD SCH (09:37)
[2017-11-13] MEDS: amLODIPine BESYLATE 5 MG TABLET (FP) PO SCH (09:37)
[2017-11-13] MEDS: CARVEDILOL 25 MG TABLET (FP) PO SCH (09:37)
[2017-11-13] MEDS: PRENATAL VITAMINS W/ FOLIC ACID TABLET (FP) PO SCH (09:37)
[2017-11-13] MEDS: ISOSORBIDE MONONITRATE 30 MG TAB.SR.24H (FP) PO SCH (09:37)
[2017-11-13] MEDS: LIDOCAINE 5% TOPICAL PATCH TP SCH (09:38)
[2017-11-13] MEDS: DORZOLAMIDE 2% HCL OPHTHALMIC SOLUTION 10 ML BOTTLE OD SCH (09:39)
[2017-11-13] MEDS: TIMOLOL 0.5% OPHTHALMIC SOL 5 ML BOTTLE OD SCH (09:39)
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
[2017-11-13 11:47] VITALS: BP 159/79; PULSE 60
--- NOTE | 2017-11-13 13:37 | EKG ---
Test Reason : Blood Pressure : / mmHG Vent. Rate : 067 BPM Atrial Rate : 067 BPM P-R Int : 174 ms QRS Dur : 106 ms QT Int : 434 ms P-R-T Axes : 065 -43 114 degrees QTc Int : 458 ms NORMAL SINUS RHYTHM LEFT AXIS DEVIATION INCOMPLETE RIGHT BUNDLE BRANCH BLOCK T WAVE ABNORMALITY, CONSIDER LATERAL ISCHEMIA ABNORMAL ECG WHEN COMPARED WITH ECG OF 08-NOV-2017 16:17, NO SIGNIFICANT CHANGE WAS FOUND Confirmed by MD Andrea, Abel ([id number]) on 11/13/2017 1:36:49 PM Referred By: Confirmed By:Abel Mendez MD
--- NOTE | 2017-11-13 13:39 | EKG ---
Test Reason : Blood Pressure : / mmHG Vent. Rate : 065 BPM Atrial Rate : 065 BPM P-R Int : 184 ms QRS Dur : 104 ms QT Int : 450 ms P-R-T Axes : 047 -39 119 degrees QTc Int : 468 ms NORMAL SINUS RHYTHM LEFT AXIS DEVIATION INCOMPLETE RIGHT BUNDLE BRANCH BLOCK T WAVE ABNORMALITY, CONSIDER LATERAL ISCHEMIA PROLONGED QT ABNORMAL ECG WHEN COMPARED WITH ECG OF 07-NOV-2017 23:25, T WAVE INVERSION NO LONGER EVIDENT IN INFERIOR LEADS T WAVE INVERSION MORE EVIDENT IN LATERAL LEADS Confirmed by MD Andrea, Abel ([id number]) on 11/13/2017 1:38:39 PM Referred By: Confirmed By:Abel Mednez MD
== END 2017-11-13 10:15 | disposition left against medical advice (07) | DRG 894 ==
LOC: YASAS 13:31 → Y5N 17:50
PROVIDERS: ADMIT Psychiatry & Neurology Psychiatry; ATTEND Psychiatry & Neurology Psychiatry
PROC: HZ42ZZZ Group Counseling for Substance Abuse Treatment, Cognitive-Behavioral (ICD-10-PCS; principal; 2017-11-07)
DX: F10.20 Alcohol dependence, uncomplicated (principal); F16.10 Hallucinogen abuse, uncomplicated; F17.210 Nicotine dependence, cigarettes, uncomplicated; F19.24 Other psychoactive substance dependence with psychoactive substance-induced mood disorder; F41.0 Panic disorder [episodic paroxysmal anxiety]; I10 Essential (primary) hypertension; E11.65 Type 2 diabetes mellitus with hyperglycemia; I12.9 Hypertensive chronic kidney disease with stage 1 through stage 4 chronic kidney disease, or unspecified chronic kidney disease; N18.9 Chronic kidney disease, unspecified; M54.42 Lumbago with sciatica, left side; Z59.0 Homelessness
CPT/HCPCS: 36415; 80053; 82962; 85027; 86593; 93005; 93010